=== PATIENT | female | born 1995 ===

== ENCOUNTER 2016-06-07 17:30 | Observation (INO) | payer OTHER ==
--- NOTE | 2016-06-07 18:08 | ED PDOC ---
HPI: General Adult Time Seen by Provider: 06/07/16 17:52 Chief Complaint (Nursing): Abnormal Skin Integrity Chief Complaint (Provider): itching, rash History Per: Patient History/Exam Limitations: no limitations Additional Complaint(s): patient with hx of SLE dx 3 years ago presents for evaluation of rash, itching and swollen joints which have been ongoing to for about 2 months, worse for 1 day prompting visit. she was on plaquenil and another medication for lupus however ran out of the meds 3 months ago and has failed to follow up with soil and plant scientist as she recently moved. feels her heart is racing. (-) fever, chills, abdominal pain, chest pain, vomiting, diarrhea, joint pain. no steroid use in about 6 months Past Medical History Reviewed: Historical Data, Nursing Documentation, Vital Signs Vital Signs: Last Vital Signs Temp 97.8 F 06/08/16 16:00 Pulse 96 H 06/08/16 16:00 Resp 18 06/08/16 16:00 BP 105/54 L 06/08/16 16:00 Pulse Ox 98 06/09/16 12:10 - Medical History Other PMH: SLE - Surgical History Surgical History: No Surg Hx - Family History Family History: States: Unknown Family Hx - Living Arrangements Living Arrangements: With Family - Social History Current smoker - smoking cessation education provided: No Alcohol: None Drugs: Denies - Home Medications Home Medications: Ambulatory Orders Medication Instructions Recorded hydrOXYzine HCl [Atarax] 25 mg PO Q6 PRN #20 tab 06/08/16 predniSONE [Prednisone] 10 mg PO TID #16 tab 06/08/16 - Allergies Allergies/Adverse Reactions: Allergies Allergy/AdvReac Type Severity Reaction Status Date / Time generic meds Allergy RASH Uncoded 06/07/16 17:40 Review of Systems ROS Statement: Except As Marked, All Systems Reviewed And Found Negative Constitutional: Negative for: Fever, Chills Cardiovascular: Positive for: Palpitations (heart racing). Negative for: Chest Pain Respiratory: Negative for: Shortness of Breath Gastrointestinal: Positive for: Nausea. Negative for: Vomiting, Abdominal Pain Genitourinary Female: Negative for: Dysuria, Hematuria, Vaginal Bleeding Musculoskeletal: Negative for: Neck Pain Skin: Negative for: Rash Neurological: Negative for: Headache, Dizziness Physical Exam - Reviewed Nursing Documentation Reviewed: Yes Vital Signs Reviewed: Yes - Physical Exam Appears: Positive for: Uncomfortable, In Acute Distress (moderate dermatological , scratching all over ) Head Exam: Positive for: NORMAL INSPECTION Skin: Positive for: Normal Color, Warm, Rash (butterfly rash to face, erythema to rash to lower extremities anterior, hands posterior) Eye Exam: Positive for: Normal appearance ENT: Positive for: Normal ENT Inspection Neck: Positive for: Normal, Painless ROM Cardiovascular/Chest: Positive for: Tachycardia. Negative for: Murmur Respiratory: Positive for: Normal Breath Sounds. Negative for: Wheezing Gastrointestinal/Abdominal: Positive for: Normal Exam, Soft. Negative for: Tenderness Back: Positive for: Normal Inspection. Negative for: L CVA Tenderness, R CVA Tenderness Extremity: Positive for: Normal ROM, Capillary Refill (normal ), Swelling (to the hands feet, no other joint swelling ). Negative for: Tenderness, Calf Tenderness Lymphatic: Positive for: Normal Exam Neurologic/Psych: Positive for: Alert, Oriented, Gait (normal ). Negative for: Motor/Sensory Deficits - Laboratory Results Result Diagrams: 06/08/16 06:00 06/07/16 18:39 Urine POC: Negative - ECG O2 Sat by Pulse Oximetry: 98 Pulse Ox Interpretation: Normal Medical Decision Making Medical Decision Makin20 y/o female with Lupus with rash consistent with SLE, swollen hand joints. - labs - steroid - benadryl - IVF - re-evaluation labs with elevated wbc, ESR 57 otherwise no acute finding. after medications patient still appears to be in discomfort, no change in the rash, no change in the itching, joints still hurt case discussed with patient given no PMD in the area and no soil and plant scientist she will need to start on steroid to help control the flair. will bring into the hospital for observation. she is in agreement. call placed to Dr. Masters for further evaluation Disposition - Clinical Impression Clinical Impression: SLE exacerbation - Disposition Disposition Time: 20:02 Condition: GOOD
[2016-06-07] MEDS ORDERED: Sodium Chloride 0.9% 1,000 ML IV STA (18:09)
[2016-06-07 18:51] LABS: BASO # 0.2 K/uL (0.0-0.2); BASO % 0.9 % (0.0-2.0); EOS # 0.2 K/uL (0.0-0.7); EOS % 1.2 % (0.0-4.0); HEMATOCRIT 33.7 % (34.0-47.0); LYMPH # 1.7 K/uL (1.0-4.3); LYMPH % 9.6 % (20.0-40.0); MEAN CELL VOLUME 77.4 fl (81.0-99.0); MEAN CORPUSCULAR HEMOGLOBIN 24.1 pg (27.0-31.0); MEAN CORPUSCULAR HGB CONC 31.1 g/dL (33.0-37.0); MEAN PLATELET VOLUME 7.7 fl (7.2-11.7); MONO # 0.4 K/uL (0.0-0.8); MONO % 2.3 % (0.0-10.0); NEUT # 14.9 K/uL (1.8-7.0); PLATELET COUNT 322 K/uL (130-400); RED CELL DISTRIBUTION WIDTH 16.5 % (11.5-14.5); WHITE BLOOD COUNT 17.3 K/uL (4.8-10.8)
[2016-06-07 19:10] LABS: ALB/GLOB RATIO 0.9 (1.0-2.1); ALKALINE PHOSPHATASE 74 U/L (38-126); ALT/SGPT 26 U/L (9-52); AST/SGOT 48 U/L (14-36); BILIRUBIN,TOTAL 0.4 mg/dl (0.2-1.3); BLOOD UREA NITROGEN 12 mg/dl (7-17); CALCIUM 9.4 mg/dL (8.4-10.2); CARBON DIOXIDE 28 mmol/L (22-30); CHLORIDE 100 mmol/L (98-107); GFR AFRICAN-AMERICAN > 60; GLUCOSE,RANDOM 92 mg/dL (65-105); LIPASE 28 U/L (23-300); MAGNESIUM 1.8 MG/DL (1.6-2.3); PHOSPHOROUS 4.6 mg/dl (2.5-4.5); SODIUM 141 mmol/l (132-148); TOTAL PROTEIN 8.5 G/DL (6.3-8.2)
[2016-06-07 19:14] LABS: RBC URINE 1 /hpf (0-3); URINE BACTERIA RARE (<OCC); URINE BILIRUBIN NEGATIVE (NEGATIVE); URINE BLOOD NEGATIVE (NEGATIVE); URINE COLOR YELLOW (YELLOW); URINE GLUCOSE (UA) NEG (Normal); URINE KETONE 20 mg/dL (NEGATIVE); URINE LEUKOCYTE ESTERASE NEG Leu/uL (Negative); URINE PROTEIN NEGATIVE (NEGATIVE); URINE UROBILINOGEN 0.2-1.0 mg/dL (0.2-1.0); WBC URINE 1 /hpf (0-5)
[2016-06-07 19:39] LABS: THYROID STIMULATING HORMONE 0.75 mIU/ML (0.46-4.68)
[2016-06-07 19:49] LABS: EOSINOPHIL 1 % (0-7); NEUTROPHIL 86 % (42-75); TOTAL CELLS COUNTED 100
--- NOTE | 2016-06-07 20:55 | CP.PCM.HP ---
History of Present Illness - History of Present Illness History of Present Illness: Healthcare Marketer: Dr Ferrera; not on staff Chief Complaint: Generalized Pruritus HPI: 20 years old female with hx of lupus noncompliant with medication, comes with 2 days of a pruritic erythemato, macular rash, generalized on both lower extremities, upper extremities, face and back. No headaches, dizziness, SOB, Chest pain, Cough, nausea, vomits, Joint pains, abdominal pain, Diarrhea nor urinary symptoms. She saw her Healthcare Marketer recently and was given Prescription for Christoph (Prednisone), which was not filled. In the ED she received Benadryl which she stated, did not work; and Solu-Medrol 125mg IV which began clearing up the rash but the Pruritus was still intense. PMH: Lupus PSH: No surgical Hx SH: No smoking of Cigarettes; No alcohol, last Marijuana use was 2 days ago. FH: No Hereditary diseases Allergies: Allergies to generic Medications? Present on Admission - Present on Admission Any Indicators Present on Admission: No History of DVT/PE: No History of Uncontrolled Diabetes: No Urinary Catheter: No Decubitus Ulcer Present: No Review of Systems - Constitutional Constitutional: absent: Anorexia, Chills, Fatigue, Fever, Headache, Malaise, Night Sweats - EENT Eyes: absent: Blurred Vision, Diplopia, Photophobia, Requires Corrective Lenses , Sees Flashes Ears: absent: Decreased Hearing, Ear Discharge, Ear Pain, Tinnitus Nose/Mouth/Throat: absent: Epistaxis, Nasal Congestion, Sinus Pain, Sinus Pressure, Sore Throat - Cardiovascular Cardiovascular: absent: Chest Pain, Dyspnea, Edema, Lightheadedness, Palpitations - Respiratory Respiratory: absent: Cough, Dyspnea, Wheezing, Stridor - Gastrointestinal Gastrointestinal: absent: Abdominal Pain, Constipation, Diarrhea, Nausea, Vomiting - Genitourinary Genitourinary: absent: Dysuria, Hematuria, Urinary Frequency, Freq UTI - Musculoskeletal Musculoskeletal: absent: Arthralgias, Back Pain, Joint Swelling, Muscle Weakness , Neck Pain - Integumentary Integumentary: Pruritus, Rash. absent: Skin Ulcer, Sores, Striae, Swelling - Neurological Neurological: absent: Confusion, Focal Weakness, Headaches, Memory Loss - Psychiatric Psychiatric: absent: Anxiety, Confusion, Depression, Panic Attacks - Endocrine Endocrine: absent: Palpitations, Polydipsia, Polyphagia, Polyuria - Hematologic/Lymphatic Hematologic: absent: Easy Bleeding, Easy Bruising Past Patient History - Past Medical History & Family History Past Medical History?: Yes - Past Social History Smoking Status: Never Smoked Chewing Tobacco Use: No Cigar Use: No Alcohol: None Drugs: Cannabis Home Situation {Lives}: With Family - CARDIAC Hx Cardiac Disorders: No - PULMONARY Hx Respiratory Disorders: No - NEUROLOGICAL Hx Neurological Disorder: No - HEENT Hx HEENT Problems: No - RENAL Hx Chronic Kidney Disease: No - ENDOCRINE/METABOLIC Hx Endocrine Disorders: No - HEMATOLOGICAL/ONCOLOGICAL Hx Blood Disorders: No - INTEGUMENTARY Hx Dermatological Problems: No Other/Comment: Lupus - MUSCULOSKELETAL/RHEUMATOLOGICAL Hx Musculoskeletal Disorders: No - GASTROINTESTINAL Hx Gastrointestinal Disorders: No - GENITOURINARY/GYNECOLOGICAL Hx Genitourinary Disorders: No - PSYCHIATRIC Hx Psychophysiologic Disorder: No Hx Substance Use: Yes - SURGICAL HISTORY Hx Surgeries: No - ANESTHESIA Hx Anesthesia: No Meds Allergies/Adverse Reactions: Allergies Allergy/AdvReac Type Severity Reaction Status Date / Time generic meds Allergy RASH Uncoded 06/07/16 17:40 Physical Exam - Constitutional Appears: No Acute Distress - Head Exam Head Exam: ATRAUMATIC, NORMAL INSPECTION, NORMOCEPHALIC - Eye Exam Eye Exam: EOMI, Normal appearance Pupil Exam: NORMAL ACCOMODATION, PERRL - ENT Exam ENT Exam: Mucous Membranes Moist, Normal Exam, Normal External Ear Exam, Normal Oropharynx - Neck Exam Neck exam: Positive for: Full Rom, Normal Inspection. Negative for: Lymphadenopathy, Tenderness - Respiratory Exam Respiratory Exam: Clear to Auscultation Bilateral. absent: Rales, Rhonchi, Wheezes - Cardiovascular Exam Cardiovascular Exam: REGULAR RHYTHM, RRR, +S1, +S2. absent: Gallop, JVD - GI/Abdominal Exam GI & Abdominal Exam: Normal Bowel Sounds, Soft. absent: Distended, Mass, Organomegaly, Tenderness - Rectal Exam Rectal Exam: Deferred - Extremities Exam Extremities exam: Positive for: full ROM, normal inspection. Negative for: calf tenderness, pedal edema - Back Exam Back exam: NORMAL INSPECTION. absent: CVA tenderness (L), CVA tenderness (R) - Neurological Exam Neurological exam: Alert, CN II-XII Intact, Normal Gait, Oriented x3, Reflexes Normal - Psychiatric Exam Psychiatric exam: Normal Affect, Normal Mood - Skin Skin Exam: Dry, Intact, Warm Additional comments: Maculo-erythematous rash diffuse on both lower extremities and the hands, less intense color on the arms Results - Vital Signs Recent Vital Signs: Last Vital Signs Temp 98.3 F 06/07/16 17:41 Pulse 117 H 06/07/16 17:41 Resp 18 06/07/16 17:41 BP 132/85 06/07/16 17:41 Pulse Ox 98 06/07/16 18:07 - Labs Result Diagrams: 06/07/16 18:39 06/07/16 18:39 Labs: Laboratory Results - last 24 hr 06/07/16 06/07/16 18:30 18:39 WBC 17.3 H RBC 4.35 Hgb 10.5 L Hct 33.7 L MCV 77.4 L MCH 24.1 L MCHC 31.1 L RDW 16.5 H Plt Count 322 MPV 7.7 Neut % (Auto) 86.0 H Lymph % (Auto) 9.6 L [place] % (Auto) 2.3 Eos % (Auto) 1.2 Baso % (Auto) 0.9 Neut # 14.9 H Lymph # 1.7 [place] # 0.4 Eos # 0.2 Baso # 0.2 Neutrophils % (Manual) 86 H Band Neutrophils % 1 Lymphocytes % (Manual) 9 L Monocytes % (Manual) 3 Eosinophils % (Manual) 1 Platelet Estimate Normal Hypochromasia (manual) Moderate Poikilocytosis (manual Slight Anisocytosis (manual) Moderate Microcytosis (manual) Moderate Sodium 141 Potassium 4.0 Chloride 100 Carbon Dioxide 28 Anion Gap 17 BUN 12 Creatinine 0.5 L Est GFR ( Amer) > 60 Est GFR (Non-Af Amer) > 60 Random Glucose 92 Calcium 9.4 Phosphorus 4.6 H Magnesium 1.8 Total Bilirubin 0.4 AST 48 H ALT 26 Alkaline Phosphatase 74 Total Protein 8.5 H Albumin 4.0 Globulin 4.6 H Albumin/Globulin Ratio 0.9 L Lipase 28 TSH 3rd Generation 0.75 Urine Color Yellow Urine Clarity Slighty-cloudy Urine pH 6.0 Ur Specific [place] 1.020 Urine Protein Negative Urine Glucose (UA) Neg Urine Ketones 20 Urine Blood Negative Urine Nitrate Negative Urine Bilirubin Negative Urine Urobilinogen 0.2-1.0 Ur Leukocyte Esterase Neg Urine RBC (Auto) 1 Urine Microscopic WBC 1 Ur Squamous Epith Cells 2 Urine Bacteria Rare Assessment & Plan - Assessment and Plan (Free Text) Assessment: #. SLE flare with Pruritic rash #. Leukocytosis #. Anemia Plan: 20 years old female with hx of lupus noncompliant with medication, comes with 2 days of a pruritic erythemato, macular rash, generalized on both lower extremities, upper extremities, face and back. In the ED she received Benadryl which she stated, did not work; and Solu-Medrol 125mg IV which began clearing up the rash but the Pruritus was still intense. #. SLE flare with Pruritic rash of Acute Cutaneous Lupus - Continue IV Solu-Medrol, then convert to Prednisone tapering - Hydroxyzine for prutitus #. Neutrophylic Leukocytosis reactive - folloe CBC #. Anemia due to the Lupus - follow Hb #. DVT Prophylaxis with lovenox #. code Status: Full - Date & Time Date: 06/07/16 Time: 20:55
[2016-06-07 21:33] LABS: ERYTHROCYTE SEDIMENTATION RATE 57 mm/hr (0-20)
[2016-06-07] MEDS: methylPREDNISolone 60 MG in Sodium Chloride 0.9% 50 ML IVPB SCH (22:58)
[2016-06-08] MEDS: methylPREDNISolone 60 MG in Sodium Chloride 0.9% 50 ML IVPB SCH ×3 (03:53→15:38)
[2016-06-08] MEDS ORDERED: Pneumococcal 23-Valent Vaccine IM ONE (06:30)
[2016-06-08 07:25] LABS: BASO % 0.1 % (0.0-2.0); HEMATOCRIT 36.1 % (34.0-47.0); LYMPH # 0.9 K/uL (1.0-4.3); LYMPH % 5.7 % (20.0-40.0); MEAN CELL VOLUME 77.6 fl (81.0-99.0); MEAN CORPUSCULAR HEMOGLOBIN 24.2 pg (27.0-31.0); MEAN CORPUSCULAR HGB CONC 31.2 g/dL (33.0-37.0); MEAN PLATELET VOLUME 8.2 fl (7.2-11.7); MONO # 0.1 K/uL (0.0-0.8); MONO % 0.5 % (0.0-10.0); NEUT # 15.2 K/uL (1.8-7.0); NEUT % 93.7 % (50.0-75.0); PLATELET COUNT 354 K/uL (130-400); RED CELL DISTRIBUTION WIDTH 16.4 % (11.5-14.5); WHITE BLOOD COUNT 16.2 K/uL (4.8-10.8)
[2016-06-08] MEDS ORDERED: Enoxaparin 40 mg Syringe SC SCH (09:00)
[2016-06-08 11:09] LABS: TOTAL CELLS COUNTED 100
[2016-06-08 11:10] LABS: NEUTROPHIL 94 % (42-75)
[2016-06-08 14:15] VITALS: TEMP 97.8
[2016-06-08 16:54] VITALS: BP 105/54; PULSE 96; RESP 18
--- NOTE | 2016-06-08 19:38 | CP.PCM.DIS ---
Provider - Provider Date of Admission: 06/07/16 20:02 Attending physician: Alireza Masters Time Spent in preparation of Discharge (in minutes): 20 Hospital Course - Lab Results Lab Results: Most Recent Lab Values WBC 16.2 K/uL (4.8-10.8) H 06/08/16 06:00 RBC 4.66 Mil/uL (3.80-5.20) 06/08/16 06:00 Hgb 11.3 g/dL (12.0-16.0) L 06/08/16 06:00 Hct 36.1 % (34.0-47.0) 06/08/16 06:00 MCV 77.6 fl (81.0-99.0) L 06/08/16 06:00 MCH 24.2 pg (27.0-31.0) L 06/08/16 06:00 MCHC 31.2 g/dL (33.0-37.0) L 06/08/16 06:00 RDW 16.4 % (11.5-14.5) H 06/08/16 06:00 Plt Count 354 K/uL (130-400) 06/08/16 06:00 MPV 8.2 fl (7.2-11.7) 06/08/16 06:00 Neut % (Auto) 93.7 % (50.0-75.0) H 06/08/16 06:00 Lymph % (Auto) 5.7 % (20.0-40.0) L 06/08/16 06:00 [place] % (Auto) 0.5 % (0.0-10.0) 06/08/16 06:00 Eos % (Auto) 0.0 % (0.0-4.0) 06/08/16 06:00 Baso % (Auto) 0.1 % (0.0-2.0) 06/08/16 06:00 Neut # 15.2 K/uL (1.8-7.0) H 06/08/16 06:00 Lymph # 0.9 K/uL (1.0-4.3) L 06/08/16 06:00 [place] # 0.1 K/uL (0.0-0.8) 06/08/16 06:00 Eos # 0.0 K/uL (0.0-0.7) 06/08/16 06:00 Baso # 0.0 K/uL (0.0-0.2) 06/08/16 06:00 Neutrophils % (Manual) 94 % (42-75) H 06/08/16 06:00 Band Neutrophils % 1 % (0-2) 06/07/16 18:39 Lymphocytes % (Manual) 6 % (20-50) L 06/08/16 06:00 Monocytes % (Manual) 0 % (0-10) 06/08/16 06:00 Eosinophils % (Manual) 1 % (0-7) 06/07/16 18:39 Platelet Estimate Normal (NORMAL) 06/08/16 06:00 Hypochromasia (manual) Moderate 06/07/16 18:39 Poikilocytosis (manual Slight 06/07/16 18:39 Anisocytosis (manual) Slight 06/08/16 06:00 Microcytosis (manual) Moderate 06/07/16 18:39 ESR 57 mm/hr (0-20) H 06/07/16 18:39 Sodium 141 mmol/l (132-148) 06/07/16 18:39 Potassium 4.0 MMOL/L (3.6-5.0) 06/07/16 18:39 Chloride 100 mmol/L (98-107) 06/07/16 18:39 Carbon Dioxide 28 mmol/L (22-30) 06/07/16 18:39 Anion Gap 17 (10-20) 06/07/16 18:39 BUN 12 mg/dl (7-17) 06/07/16 18:39 Creatinine 0.5 mg/dL (0.7-1.2) L 06/07/16 18:39 Est GFR ( Amer) > 60 06/07/16 18:39 Est GFR (Non-Af Amer) > 60 06/07/16 18:39 Random Glucose 92 mg/dL (65-105) 06/07/16 18:39 Calcium 9.4 mg/dL (8.4-10.2) 06/07/16 18:39 Phosphorus 4.6 mg/dl (2.5-4.5) H 06/07/16 18:39 Magnesium 1.8 MG/DL (1.6-2.3) 06/07/16 18:39 Total Bilirubin 0.4 mg/dl (0.2-1.3) 06/07/16 18:39 AST 48 U/L (14-36) H 06/07/16 18:39 ALT 26 U/L (9-52) 06/07/16 18:39 Alkaline Phosphatase 74 U/L (38-126) 06/07/16 18:39 Total Protein 8.5 G/DL (6.3-8.2) H 06/07/16 18:39 Albumin 4.0 g/dL (3.5-5.0) 06/07/16 18:39 Globulin 4.6 gm/dL (2.2-3.9) H 06/07/16 18:39 Albumin/Globulin Ratio 0.9 (1.0-2.1) L 06/07/16 18:39 Lipase 28 U/L (23-300) 06/07/16 18:39 TSH 3rd Generation 0.75 mIU/ML (0.46-4.68) 06/07/16 18:39 Urine Color Yellow (YELLOW) 06/07/16 18:30 Urine Clarity Slighty-cloudy (Clear) 06/07/16 18:30 Urine pH 6.0 (5.0-8.0) 06/07/16 18:30 Ur Specific [place] 1.020 (1.003-1.030) 06/07/16 18:30 Urine Protein Negative mg/dL (NEGATIVE) 06/07/16 18:30 Urine Glucose (UA) Neg mg/dL (Normal) 06/07/16 18:30 Urine Ketones 20 mg/dL (NEGATIVE) 06/07/16 18:30 Urine Blood Negative (NEGATIVE) 06/07/16 18:30 Urine Nitrate Negative (NEGATIVE) 06/07/16 18:30 Urine Bilirubin Negative (NEGATIVE) 06/07/16 18:30 Urine Urobilinogen 0.2-1.0 mg/dL (0.2-1.0) 06/07/16 18:30 Ur Leukocyte Esterase Neg [place]/uL (Negative) 06/07/16 18:30 Urine RBC (Auto) 1 /hpf (0-3) 06/07/16 18:30 Urine Microscopic WBC 1 /hpf (0-5) 06/07/16 18:30 Ur Squamous Epith Cells 2 /hpf (0-5) 06/07/16 18:30 Urine Bacteria Rare (<OCC) 06/07/16 18:30 - Hospital Course Hospital Course: 20 years old female with hx of lupus noncompliant with medication, comes with 2 days of a pruritic erythematous, macular rash, generalized on both lower extremities, upper extremities, face and back. No headaches, dizziness, SOB, Chest pain, Cough, nausea, vomits, Joint pains, abdominal pain, Diarrhea nor urinary symptoms. She saw her Instructional Technology Specialist recently and was given Prescription for Christoph (Prednisone), which was not filled. In the ED she received Benadryl which she stated, did not work; and Solu-Medrol 125mg IV which began clearing up the rash but the Pruritus was still intense. She was placed under observation for SLE flare with acute cutaneous Pruritic rash . She was continued on methylprednisolne 60 mg IV Q8 and hydroxyzine . Clinically she improved, her rash resolved and feeling mucgh better. She remained hemodynamically stable, afebrile with no fever, no SOB , no CP. Will discharge patient home on Prednisone Po tapering dose. Advice patient to follow up with her printmaker . DX : 1 SLE flare with Pruritic rash of Acute Cutaneous Lupus-- improved 2.Leukocytosis--- reactive - folloe CBC 3. Anemia of chronic disease due to the Lupus Discharge Exam - Head Exam Head Exam: ATRAUMATIC, NORMAL INSPECTION, NORMOCEPHALIC - Eye Exam Eye Exam: EOMI, PERRL Pupil Exam: NORMAL ACCOMODATION - ENT Exam ENT Exam: Mucous Membranes Moist, Normal Exam - Neck Exam Neck exam: Full Rom, Normal Inspection - Respiratory Exam Respiratory Exam: Clear to PA & Lateral, NORMAL BREATHING PATTERN. absent: Rales, Rhonchi, Wheezes - Cardiovascular Exam Cardiovascular Exam: REGULAR RHYTHM, RRR, +S1, +S2. absent: JVD - GI/Abdominal Exam GI & Abdominal Exam: Normal Bowel Sounds, Soft. absent: Distended, Guarding, Rebound, Tenderness - Rectal Exam Rectal Exam: Deferred - Extremities Exam Extremities exam: normal capillary refill, normal inspection, pedal pulses present - Back Exam Back exam: NORMAL INSPECTION - Neurological Exam Neurological exam: Alert, CN II-XII Intact, Oriented x3, Reflexes Normal - Psychiatric Exam Psychiatric exam: Normal Affect, Normal Mood - Skin Skin Exam: Dry, Intact, Rash (buterfly rash to face ), Warm Discharge Plan - Discharge Medications Prescriptions: hydrOXYzine HCl [Atarax] 25 mg PO Q6 PRN #20 tab PRN Reason: Itching / Pruritus predniSONE [Prednisone] 10 mg PO TID #16 tab - Follow Up Plan Condition: GOOD Disposition: HOME/ ROUTINE Patient education suggested?: Yes Instructions: Lupus Erythematosus (DC) Additional Instructions: Follow up with her Instructional Technology Specialist
[2016-06-09 11:27] VITALS: O2SAT 98
== END 2016-06-08 17:05 | disposition home or self-care (01) ==
LOC: H.ER 17:30 → H.ERHOLD 20:02 → H.TEL 22:18
PROVIDERS: ADMIT Internal Medicine; ATTEND Internal Medicine
DX: M32.9 Systemic lupus erythematosus, unspecified (principal); Z91.14 Patient's other noncompliance with medication regimen; D72.829 Elevated white blood cell count, unspecified; D63.8 Anemia in other chronic diseases classified elsewhere; Z23 Encounter for immunization

== ENCOUNTER 2016-08-09 22:19 | Emergency (ER) | payer OTHER ==
[2016-08-09 22:31] VITALS: BP 116/61; PULSE 82; RESP 16; TEMP 98; O2SAT 100
[2016-08-09] MEDS ORDERED: Sodium Chloride 0.9% 1,000 ML IV STA (23:05)
--- NOTE | 2016-08-09 23:07 | ED PDOC ---
HPI: Skin/Bite Injury Time Seen by Provider: 08/09/16 22:40 Chief Complaint (Nursing): Abnormal Skin Integrity Chief Complaint (Provider): Itchy rash- Lupus flare History Per: Patient History/Exam Limitations: no limitations Onset/Duration Of Symptoms: Days (2) Current Symptoms Are (Timing): Still Present Quality Of Symptoms: Itching Severity: Moderate Additional Complaint(s): 20 yo female with history of lupus presents with itchy rash x 2 days. PT states she was unable to take her medications for lupus for a week and began yesterday fter the rash appeared but states it did not help. Pt denies pain. PT states she gets this rash on her face nad body when he lupus flares. Pt states the medications are not helping. Past Medical History Reviewed: Historical Data, Nursing Documentation, Vital Signs Vital Signs: Last Vital Signs Temp 98.0 F 08/09/16 22:27 Pulse 82 08/09/16 22:27 Resp 16 08/09/16 22:27 BP 116/61 08/09/16 22:27 Pulse Ox 100 08/09/16 22:27 - Medical History PMH: Denies: Chronic Kidney Disease Other PMH: Lupus - Surgical History Surgical History: No Surg Hx - Family History Family History: States: Unknown Family Hx - Living Arrangements Living Arrangements: With Family - Social History Current smoker - smoking cessation education provided: No Alcohol: None Drugs: Denies - Home Medications Home Medications: Ambulatory Orders Medication Instructions Recorded hydrOXYzine HCl [Atarax] 25 mg PO Q6 PRN #20 tab 06/08/16 predniSONE [Prednisone] 10 mg PO TID #16 tab 06/08/16 - Allergies Allergies/Adverse Reactions: Allergies Allergy/AdvReac Type Severity Reaction Status Date / Time generic meds Allergy RASH Uncoded 06/07/16 17:40 Review of Systems ROS Statement: Except As Marked, All Systems Reviewed And Found Negative Skin: Positive for: Rash Physical Exam - Reviewed Nursing Documentation Reviewed: Yes Vital Signs Reviewed: Yes - Physical Exam Appears: Positive for: Well, Non-toxic, No Acute Distress Head Exam: Positive for: ATRAUMATIC, NORMAL INSPECTION, NORMOCEPHALIC Skin: Positive for: Warm, Rash (Rash also on the extremities in varies pattern. ). Negative for: Normal Color ((+) butterfly/malar rash ) Eye Exam: Positive for: Normal appearance ENT: Positive for: Normal ENT Inspection Neck: Positive for: Normal, Painless ROM Cardiovascular/Chest: Positive for: Regular Rate, Rhythm Respiratory: Positive for: Normal Breath Sounds. Negative for: Decreased Breath Sounds, Accessory Muscle Use Gastrointestinal/Abdominal: Positive for: Normal Exam, Bowel Sounds, Soft Back: Positive for: Normal Inspection Extremity: Positive for: Normal ROM Neurologic/Psych: Positive for: Alert, Oriented - ECG O2 Sat by Pulse Oximetry: 100 Medical Decision Making Medical Decision Making: Labs and steroid ordered. Endorsed to Isa Dan PA-C at 0000 Disposition - Clinical Impression Clinical Impression: SLE exacerbation - Patient ED Disposition Is Patient to be Admitted: Transfer of Care - Disposition Disposition: Transfer of Care Disposition Time: 00:00 Condition: GOOD
[2016-08-09 23:40] LABS: BASO # 0.1 K/uL (0.0-0.2); BASO % 0.3 % (0.0-2.0); EOS # 0.1 K/uL (0.0-0.7); EOS % 0.4 % (0.0-4.0); HEMATOCRIT 37.6 % (34.0-47.0); LYMPH # 1.3 K/uL (1.0-4.3); LYMPH % 5.5 % (20.0-40.0); MEAN CELL VOLUME 80.6 fl (81.0-99.0); MEAN CORPUSCULAR HEMOGLOBIN 25.9 pg (27.0-31.0); MEAN CORPUSCULAR HGB CONC 32.1 g/dL (33.0-37.0); MEAN PLATELET VOLUME 7.9 fl (7.2-11.7); MONO # 0.4 K/uL (0.0-0.8); MONO % 1.6 % (0.0-10.0); NEUT # 21.7 K/uL (1.8-7.0); NEUT % 92.2 % (50.0-75.0); PLATELET COUNT 344 K/uL (130-400); RED CELL DISTRIBUTION WIDTH 17.8 % (11.5-14.5); WHITE BLOOD COUNT 23.5 K/uL (4.8-10.8)
--- NOTE | 2016-08-09 23:54 | ED PDOC ---
- Laboratory Results Result Diagrams: 08/09/16 23:37 08/09/16 23:37 - ECG O2 Sat by Pulse Oximetry: 100 Medical Decision Making Medical Decision Making: Case endorsed to service writer from NANCY Akers at midnight pending re-eval HPI reviewed: 20 yo female with history of lupus presents with itchy rash x 2 days. PT states she was unable to take her medications for lupus for a week and began yesterday fter the rash appeared but states it did not help. Pt denies pain. PT states she gets this rash on her face nad body when he lupus flares. Pt states the medications are not helping. After Solumedrol and Benadryl, pt reports rash is noticeably improved. Pt given RX for Medrol dise pack and advised to continue her lups medications at home Disposition - Clinical Impression Clinical Impression: SLE exacerbation - POA Present On Arrival: None - Disposition Disposition: Routine/Home Disposition Time: 01:02 Condition: GOOD Prescriptions: Methylprednisolone [Medrol Dose Pack (21 tabs)] 4 mg PO DAILY #21 mg Instructions: Autoimmune Disease (ED)
[2016-08-09 23:56] LABS: ALB/GLOB RATIO 1.1 (1.0-2.1); ALKALINE PHOSPHATASE 75 U/L (38-126); ALT/SGPT 24 U/L (9-52); AST/SGOT 21 U/L (14-36); BILIRUBIN,TOTAL 0.2 mg/dl (0.2-1.3); BLOOD UREA NITROGEN 10 mg/dl (7-17); CALCIUM 9.8 mg/dL (8.4-10.2); CARBON DIOXIDE 24 mmol/L (22-30); CHLORIDE 103 mmol/L (98-107); GFR AFRICAN-AMERICAN > 60; GLUCOSE,RANDOM 139 mg/dL (65-105); POTASSIUM 4.1 MMOL/L (3.6-5.0); SODIUM 137 mmol/l (132-148); TOTAL PROTEIN 8.6 G/DL (6.3-8.2)
[2016-08-10 00:18] LABS: ERYTHROCYTE SEDIMENTATION RATE 46 mm/hr (0-20)
[2016-08-10 01:35] LABS: NEUTROPHIL 94 % (42-75); REACTIVE LYMPHOCYTES 1 % (0-0); TOTAL CELLS COUNTED 100
[2016-08-10 01:36] LABS: LARGE PLATELETS PRESENT
== END 2016-08-10 01:05 | disposition home or self-care (01) ==
LOC: H.ER 22:19
DX: M32.9 Systemic lupus erythematosus, unspecified (principal)

== ENCOUNTER 2016-09-15 17:35 | Emergency (ER) | payer OTHER ==
[2016-09-15] MEDS ORDERED: Sodium Chloride 0.9% 50 ML IV ONE (23:14)
[2016-09-15] MEDS ORDERED: Iohexol 300 100 ML IJ ONE (23:14)
[2016-09-16 00:31] VITALS: BMI 24.2
--- NOTE | 2016-09-17 15:21 | US ---
Pelvic ultrasound dated 09/15/2016 1952 hours. History: Pelvic pain. Transabdominal sonographic evaluation of the pelvis performed. The study was read in conjunction with subsequent CT scan abdomen and pelvis 09/15/2016 at 2320 hours Findings: The uterus is anteverted measuring approximately 0.4 x 3.9 x 3.2 cm. No myometrial masses. Endometrial stripe measures 2.2 mm. No gross free fluid seen in the cul de sac. Right ovary measures 3.9 x 2.7 x 3.1 cm and exhibits arterial flow. There is a small complex appearing right adnexal cyst that measures 1.6 x 1.6 x 1.4 cm. Left ovary measures 34.4 x 3.1 x 2.6 cm and exhibits arterial flow. The left ovary contains an irregular somewhat elongated cystic structure measures 3.9 x 3.4 x 1.4 cm that could represent a hydrosalpinx or pyosalpinx. Clinical correlation recommended. Impression: Questionable left adnexal hydrosalpinx; rule out pyosalpinx. No evidence of ovarian torsion.
[2016-09-18 00:47] LABS: URINE COLOR YELLOW (YELLOW)
[2016-09-18 00:48] LABS: URINE BILIRUBIN NEGATIVE (NEGATIVE); URINE BLOOD NEGATIVE (NEGATIVE); URINE CLARITY SLIGHT-CLOUDY (Clear); URINE GLUCOSE (UA) NEGATIVE (Normal); URINE LEUKOCYTE ESTERASE LARGE Leu/uL (Negative); URINE NITRATE NEGATIVE (NEGATIVE); URINE PROTEIN 30 mg/dL (NEGATIVE); URINE UROBILINOGEN 0.2 mg/dL (0.2-1.0)
[2016-09-18 00:49] LABS: SQUAMOUS EPITHIAL 5 /hpf (0-5); URINE BACTERIA RARE (<OCC); URINE OTHER CASTS 1 /hpf
[2016-09-18 00:50] LABS: HEMOGLOBIN 12.2 g/dL (12.0-16.0); MEAN CELL VOLUME 83.3 fl (81.0-99.0); MEAN CORPUSCULAR HEMOGLOBIN 26.5 pg (27.0-31.0); MEAN CORPUSCULAR HGB CONC 31.8 g/dL (33.0-37.0); RBC 4.61 Mil/uL (3.80-5.20); RED CELL DISTRIBUTION WIDTH 17.3 % (11.5-14.5)
--- NOTE | 2016-09-19 09:17 | CT ---
PROCEDURE: CT abdomen pelvis dated 09/15/2016.. HISTORY: Left lower quadrant abdominal pain. COMPARISON: No prior TECHNIQUE: Contiguous axial images of the abdomen and pelvis pelvis performed following a of intravenous injection of approximately 95 cc Omnipaque 300 contrast the material. Coronal and Sagittal reformats generated. Radiation dose: Total exam DLP = 450.14 mGy-cm. This CT exam was performed using one or more of the following dose reduction techniques: Automated exposure control, adjustment of the mA and/or kV according to patient size, and/or use of iterative reconstruction technique. FINDINGS: LOWER THORAX: Unremarkable. LIVER: Liver is borderline/ mildly enlarged measuring approximately 18 cm in CC dimension. Mild diffuse fatty hepatic infiltration. Portal and splenic veins are opacified. GALLBLADDER AND BILE DUCTS: The gallbladder is incompletely distended which may come account for slight thick-walled appearance. This is likely due to nonfasting state. Rule out mild chronic inflammation. PANCREAS: Visualized portions of the pancreas appear grossly unremarkable. SPLEEN: Spleen appears mildly enlarged measuring approximately 13.3 cm in greatest CC dimension. No obvious splenic mass or collection. ADRENALS: There are no adrenal lesions seen. KIDNEYS AND URETERS: Kidneys exhibit symmetric nephrograms. No evidence of nephrolithiasis or hydronephrosis. The the the the BLADDER: The urinary bladder is incompletely distended which may account for slight thick-walled appearance. Rule out cystitis. REPRODUCTIVE: There is a more this on relatively large tubular structure in the left and mid aspect of the pelvis extending into the cul-de-sac with peripheral enhancement. This most likely represents hydrosalpinx. Rule out superinfection - pyosalpinx. There may also be an adjacent right corpus luteum cyst. There is adjacent free fluid as well. APPENDIX: Appendix is unremarkable. BOWEL: Evaluation of the bowel is limited due to the lack of oral contrast material. Stomach is distended with food debris air and some liquid. Visualized loops of small bowel exhibit normal contour and caliber. No evidence of acute mechanical small bowel obstruction. Moderate amount of stool is seen within the cecum and at ascending colon suggesting mild fecal retention. No definitive evidence of mural wall thickening. PERITONEUM: Free fluid is present in the pelvis as above LYMPH NODES: Unremarkable. No enlarged lymph nodes. VASCULATURE: No evidence of abdominal aortic aneurysm. BONES: No fracture or destructive lesion. OTHER FINDINGS: None. IMPRESSION: Large somewhat asymmetric tubular structure with peripheral enhancement. Findings could represent a large hydrosalpinx or pyosalpinx with adjacent free fluid. Probable right-sided corpus luteum cyst. Consider followup pelvic ultrasound. Mild hepatosplenomegaly. Mild fatty hepatic infiltration. See above discussion for additional findings and details.
== END 2016-09-16 00:31 | disposition home or self-care (01) ==
LOC: H.ER 17:35
DX: N39.0 Urinary tract infection, site not specified (principal); N83.201 Unspecified ovarian cyst, right side

== ENCOUNTER 2016-11-20 15:53 | Emergency (ER) | payer OTHER ==
[2016-11-20 15:54] VITALS: BMI 24.2
[2016-11-20 16:13] VITALS: O2SAT 100
[2016-11-20] MEDS ORDERED: methylPREDNISolone 125 MG in Sodium Chloride 0.9% 50 ML IV STA (17:04)
[2016-11-20] MEDS ORDERED: Sodium Chloride 0.9% 1,000 ML IV STA (17:06)
--- NOTE | 2016-11-20 17:11 | ED PDOC ---
HPI: General Adult Time Seen by Provider: 11/20/16 16:30 Chief Complaint (Nursing): Medical Clearance Chief Complaint (Provider): Lupus flare up History Per: Patient History/Exam Limitations: no limitations Onset/Duration Of Symptoms: Days (x 2-3 weeks, worsened yesterday) Current Symptoms Are (Timing): Still Present Additional Complaint(s): Rema is a 21 y/o female with a past medical history of Lupus, who presents to the ED requesting medication. States she usually takes Christoph (prednisone) and Plaquenil, which she has been off of for 2-3 weeks. Couldnt afford medication, but states she will have it on Saturday. Currently patient is complaining of increased pain, and subjective fever yesterday. Denies cough and urinary symptoms. Additionally, she complains she broke her left pinky finger last month and tried to splint it, but it hasnt healed properly. Patient has left pinky pain, but only to the lateral aspect. 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 Past Medical History Reviewed: Historical Data, Nursing Documentation, Vital Signs Vital Signs: Last Vital Signs Temp 98.0 F 11/20/16 16:10 Pulse 86 11/20/16 16:10 Resp 18 11/20/16 16:10 BP 128/67 11/20/16 16:10 Pulse Ox 100 11/20/16 20:34 - Medical History PMH: Denies: Chronic Kidney Disease Other PMH: Lupus - Family History Family History: States: Unknown Family Hx - Home Medications Home Medications: Ambulatory Orders Medication Instructions Recorded hydrOXYzine HCl [Atarax] 25 mg PO Q6 PRN #20 tab 06/08/16 predniSONE [Prednisone] 10 mg PO TID #16 tab 06/08/16 Methylprednisolone [Medrol Dose 4 mg PO DAILY #21 mg 08/10/16 Pack (21 tabs)] Nitrofurantoin Macrocrystals 1 cap PO BID #14 cap 09/16/16 [Macrobid] traMADol [Ultram] 50 mg PO TID PRN #15 tab 09/16/16 Famotidine [Pepcid] 20 mg PO BID #10 tab 11/20/16 Hydroxyzine HCl 25 mg PO Q6 PRN #20 tablet 11/20/16 Methylprednisolone [Medrol Dose 4 mg PO DAILY #21 mg 09/05/17 Pack (21 tabs)] - Allergies Allergies/Adverse Reactions: Allergies Allergy/AdvReac Type Severity Reaction Status Date / Time generic meds Allergy RASH Uncoded 06/07/16 17:40 Review of Systems ROS Statement: Except As Marked, All Systems Reviewed And Found Negative Constitutional: Positive for: Fever, Other (Generalized pain) Physical Exam - Reviewed Nursing Documentation Reviewed: Yes Vital Signs Reviewed: Yes - Physical Exam Appears: Positive for: Well, Non-toxic, No Acute Distress Head Exam: Positive for: ATRAUMATIC, NORMAL INSPECTION, NORMOCEPHALIC Skin: Positive for: Warm, Dry, Rash (Malar rash on face. Mild erythema on anterior legs, patient scratching) Eye Exam: Positive for: EOMI, Normal appearance, PERRL Neck: Positive for: Normal, Painless ROM, Supple Cardiovascular/Chest: Positive for: Regular Rate, Rhythm. Negative for: Murmur Respiratory: Positive for: Normal Breath Sounds. Negative for: Accessory Muscle Use, Respiratory Distress Gastrointestinal/Abdominal: Positive for: Normal Exam, Soft. Negative for: Tenderness Back: Positive for: Normal Inspection Extremity: Positive for: Normal ROM, Deformity (Left 5th digit deformity noted at DIP. Patient able to flex at DIP and PIP.) Neurologic/Psych: Positive for: Alert, Oriented - Laboratory Results Result Diagrams: 11/20/16 17:31 11/20/16 17:31 - ECG O2 Sat by Pulse Oximetry: 100 (RA) Pulse Ox Interpretation: Normal - Progress ED Course And Treament: Re-evaluated and noted with improvement of rash. pepcid 20 mg iv x 1 dose to help with persistent itching xry of hand: fx of middle phalanx healing Patient states injury is 4 weeks old and does not want finger splint Will give her hand referral info for f/u Medical Decision Making Medical Decision Making: Time: 17:04 Plan: --Ordered labs --Started patient on IV fluids and Solu-Medrol --Pending X-Ray Left Hand 5th Digit Time: 19:13 --Given Benadryl, 50 mg IV Time: 20:19 --Given Pepcid, 20 mg IV Scribe Attestation: Documented by Chanelle Aguilera, acting as a scribe for Godwin Monk PA-C Provider Scribe Attestation: All medical record entries made by the Scribe were at my direction and personally dictated by me. I have reviewed the chart and agree that the record accurately reflects my personal performance of the history, physical exam, medical decision making, and the department course for this patient. I have also personally directed, reviewed, and agree with the discharge instructions and disposition. Disposition - Clinical Impression Clinical Impression: Fracture of middle phalanx of finger - Patient ED Disposition Is Patient to be Admitted: No - Disposition Referrals: Davina Huffman MD [Staff Provider] - Disposition: Routine/Home Disposition Time: 20:40 Condition: FAIR Prescriptions: Famotidine [Pepcid] 20 mg PO BID #10 tab Hydroxyzine HCl 25 mg PO Q6 PRN #20 tablet PRN Reason: Itching / Pruritus Methylprednisolone [Medrol Dose Pack (21 tabs)] 4 mg PO DAILY #21 mg Instructions: Finger Fracture (ED), Autoimmune Disease (ED) Forms: [employer] (Yoruba), [facility] ED School/Work Excuse
[2016-11-20 17:43] LABS: BASO # 0.1 K/uL (0.0-0.2); BASO % 0.4 % (0.0-2.0); EOS # 0.1 K/uL (0.0-0.7); EOS % 0.9 % (0.0-4.0); HEMATOCRIT 38.1 % (34.0-47.0); LYMPH # 1.6 K/uL (1.0-4.3); LYMPH % 10.3 % (20.0-40.0); MEAN CELL VOLUME 84.6 fl (81.0-99.0); MEAN CORPUSCULAR HEMOGLOBIN 26.9 pg (27.0-31.0); MEAN CORPUSCULAR HGB CONC 31.8 g/dL (33.0-37.0); MEAN PLATELET VOLUME 8.5 fl (7.2-11.7); MONO # 0.6 K/uL (0.0-0.8); MONO % 3.6 % (0.0-10.0); NEUT # 13.2 K/uL (1.8-7.0); NEUT % 84.8 % (50.0-75.0); RED CELL DISTRIBUTION WIDTH 16.2 % (11.5-14.5); WHITE BLOOD COUNT 15.5 K/uL (4.8-10.8)
[2016-11-20 17:50] LABS: ALB/GLOB RATIO 1.2 (1.0-2.1); ALKALINE PHOSPHATASE 62 U/L (38-126); ALT/SGPT 25 U/L (9-52); AST/SGOT 22 U/L (14-36); BILIRUBIN,TOTAL 0.4 mg/dl (0.2-1.3); BLOOD UREA NITROGEN 10 mg/dl (7-17); CALCIUM 9.6 mg/dL (8.4-10.2); CARBON DIOXIDE 27 mmol/L (22-30); CHLORIDE 102 mmol/L (98-107); GFR AFRICAN-AMERICAN > 60; GLUCOSE,RANDOM 100 mg/dL (65-105); POTASSIUM 3.9 MMOL/L (3.6-5.0); SODIUM 141 mmol/l (132-148); TOTAL PROTEIN 7.9 G/DL (6.3-8.2)
[2016-11-20 17:58] LABS: RBC URINE 10 /hpf (0-3); URINE BACTERIA RARE (<OCC); URINE BILIRUBIN NEGATIVE (NEGATIVE); URINE BLOOD LARGE (NEGATIVE); URINE COLOR YELLOW (YELLOW); URINE GLUCOSE (UA) NEG (Normal); URINE KETONE TRACE mg/dL (NEGATIVE); URINE LEUKOCYTE ESTERASE NEG Leu/uL (Negative); URINE PROTEIN 30 mg/dL (NEGATIVE); URINE UROBILINOGEN 0.2-1.0 mg/dL (0.2-1.0); WBC URINE 3 /hpf (0-5)
[2016-11-20] MEDS ORDERED: DiphenhydrAMINE 50 mg/ml Inj IVP STA (19:13)
[2016-11-20 21:55] VITALS: BP 123/71; PULSE 74; RESP 16; TEMP 98.7
--- NOTE | 2016-11-21 10:37 | RAD ---
PROCEDURE: Left small finger radiographs. HISTORY: INJURY OLD COMPARISON: None. TECHNIQUE: AP radiograph of the left hand, as well as spot oblique and lateral images of left small finger were obtained. FINDINGS: LEFT SMALL FINGER: There is a acute comminuted fracture at the mid phalanx of the 5th finger extending to the articular surface of the distal interphalangeal joint. Remainder of the left hand (as seen on the AP view) is grossly unremarkable. JOINTS: Normal. SOFT TISSUES: Normal. OTHER FINDINGS: None. IMPRESSION: Suspicious for acute fracture at the mid phalanx of the 5th finger.
== END 2016-11-20 21:54 | disposition home or self-care (01) ==
LOC: H.ER 15:53
DX: M32.9 Systemic lupus erythematosus, unspecified (principal); Z47.89 Encounter for other orthopedic aftercare
CPT/HCPCS: 73140; 80053; 81003; 81025; 85025; 85651; 96361; 96374; 96375; 99283; J1200; J2930; J7040

== ENCOUNTER 2017-06-16 19:58 | Emergency (ER) | payer SELFPAY ==
[2017-06-16 19:58] VITALS: BMI 24.2
[2017-06-16 20:36] VITALS: BP 112/64; PULSE 94; RESP 18; TEMP 98.8; O2SAT 100
[2017-06-16 22:18] LABS: BASO # 0.1 K/uL (0.0-0.2); BASO % 0.4 % (0.0-2.0); EOS # 0.5 K/uL (0.0-0.7); EOS % 3.3 % (0.0-4.0); HEMOGLOBIN 9.7 g/dL (12.0-16.0); LYMPH # 2.3 K/uL (1.0-4.3); LYMPH % 16.5 % (20.0-40.0); MEAN CELL VOLUME 77.3 fl (81.0-99.0); MEAN CORPUSCULAR HEMOGLOBIN 23.9 pg (27.0-31.0); MEAN CORPUSCULAR HGB CONC 30.9 g/dL (33.0-37.0); MONO # 0.5 K/uL (0.0-0.8); MONO % 3.7 % (0.0-10.0); NEUT # 10.5 K/uL (1.8-7.0); NEUT % 76.1 % (50.0-75.0); RBC 4.08 Mil/uL (3.80-5.20); RED CELL DISTRIBUTION WIDTH 16.2 % (11.5-14.5); WHITE BLOOD COUNT 13.8 K/uL (4.8-10.8)
[2017-06-16 22:25] LABS: ALB/GLOB RATIO 0.8 (1.0-2.1); ALBUMIN 3.4 g/dL (3.5-5.0); ALT/SGPT 26 U/L (9-52); AST/SGOT 13 U/L (14-36); BLOOD UREA NITROGEN 9 mg/dl (7-17); CALCIUM 8.9 mg/dL (8.4-10.2); GFR AFRICAN-AMERICAN > 60; GFR NON-AFRICAN AMERICAN > 60
[2017-06-16 22:33] LABS: URINE BILIRUBIN NEGATIVE (NEGATIVE); URINE BLOOD NEGATIVE (NEGATIVE); URINE CLARITY CLEAR (Clear); URINE COLOR STRAW (YELLOW); URINE GLUCOSE (UA) >=500 mg/dL (Normal); URINE LEUKOCYTE ESTERASE NEG Leu/uL (Negative); URINE PROTEIN NEGATIVE (NEGATIVE); URINE UROBILINOGEN 0.2-1.0 mg/dL (0.2-1.0)
--- NOTE | 2017-06-16 23:25 | ED PDOC ---
Arrival/HPI - General Chief Complaint: Weakness/Neurological Deficit Time Seen by Provider: 06/16/17 21:09 Historian: Patient - History of Present Illness Narrative History of Present Illness (Text): 06/16/17 23:23 21 yo F w/ PMh of lupus, currently on no medications, reports 1 week h/o feeling fatigue. She is asking for blood work to be done to check "how she is." Reports no dizziness or vertigo. Otherwise: (-) lightheadedness, (-) trauma, (- ) headache, (-) recent illness, (-) chest pain, (-) dyspnea, (-) fever, (-) vomiting, (-) diarrhea, (-) syncope, (-) GI bleeding. 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 Past Medical History - Cardiac Hx Cardiac Disorders: No - Pulmonary Hx Respiratory Disorders: No - Neurological Hx Neurological Disorder: No - HEENT Hx HEENT Disorder: No - Renal Hx Renal Disorder: No - Endocrine/Metabolic Hx Systemic Lupus Erythematosus: Yes - Hematological/Oncological Hx Blood Disorders: No - Integumentary Hx Dermatological Disorder: No - Musculoskeletal/Rheumatological Hx Falls: No - Gastrointestinal Hx Constipation: Yes - Genitourinary/Gynecological Hx Genitourinary Disorders: No - Psychiatric Hx Psychophysiologic Disorder: No Hx Substance Use: Yes (use marijuana evry other day) - Anesthesia Hx Anesthesia: No Family/Social History Family/Social History: Unknown Family HX Smoking Status: Current Some Days Smoker Hx Alcohol Use: No Hx Substance Use: Yes (use marijuana evry other day) Substance used: marijuana - 2 days ago Allergies/Home Meds Allergies/Adverse Reactions: Allergies prednisolone Allergy (Verified 06/16/17 20:32) RASH pt states she can take brand name Christoph but cannot take generics Review of Systems - Review of Systems Constitutional: Fatigue. absent: Weight Change, Fevers ENT: absent: Sore Throat, Rhinorrhea Respiratory: absent: SOB, Cough Cardiovascular: absent: Chest Pain, Palpitations, Edema Gastrointestinal: absent: Abdominal Pain, Diarrhea, Nausea, Vomiting, Hematochezia, Hematemesis Genitourinary Female: absent: Dysuria, Frequency, Hematuria Musculoskeletal: absent: Arthralgias, Back Pain, Neck Pain Skin: absent: Rash, Pruritis, Skin Lesions Physical Exam - Physical Exam Narrative Physical Exam (Text): 06/16/17 23:26 GENERALIZED APPEARANCE: Patient is awake, alert, oriented x3 in no acute distress. SKIN: Warm, dry; (-) cyanosis. HEAD: (-) scalp swelling or tenderness. EYES: (-) conjunctival pallor. ENMT: Mucous membranes moist. NECK: (-) tenderness, (-) stiffness, (-) lymphadenopathy. Carotids: (-) bruit. CHEST AND RESPIRATORY: (-) rales, (-) rhonchi, (-) wheezes; breath sounds equal bilaterally. HEART AND CARDIOVASCULAR: (-) irregularity; (-) murmur, (-) gallop. ABDOMEN AND GI: Soft; (-) distention, (-) tenderness, (-) rebound, (-) guarding , (-) palpable masses, (-) flank tenderness. RECTAL: (-) tenderness, (-) mass; Stool guaiac (-) with control monitor performed. A female RN, loom mechanic was present with me during the entire examination. EXTREMITIES: (-) deformity; (-) edema. Distal pulses: present. NEURO AND PSYCH: Mental status as above. service member: (-) nystagmus; Pupils equal and reactive. EOMI, (-) facial asymmetry; (-) dysarthria; tongue and uvula midline. Strength and DTRs symmetric. Gait: normal. Vital Signs Reviewed: Yes Vital Signs Temp Pulse Resp BP Pulse Ox 06/16/17 20:33 98.8 F 94 H 18 112/64 100 Temperature: Afebrile Blood Pressure: Normal Pulse: Regular Respiratory Rate: Normal Medical Decision Making ED Course and Treatment: 06/16/17 23:28 Plan : - Labs - Uhcg - UA Uhcg (-) UA (-) Labs reviewed : pt noted ot have a wbc of 13 and hgb of 9.7, hct 31. Previous medical records reviewed : on 11/20/16 pt had a wbc of 15 and hgb of 12.1. On 06/07/16, pt was kept for inpt obs for SLE flare, noted to have leukocytosis of 17.3 and was also noted to have anemia of hgb 10.5 / hct 33.7 related to lupus. Lab results d/w the patient. Patient admits to a h/o anemia, does not know the cause. Reports having last blood work done last year and was told her hgb was stable. On re-evaluation, patient is laying in bed comfortably, in no acute distress. Has no other complaints. VSS. Based on history, exam and diagnostic results, plan will be for outpatient follow up. Patient instructed to follow-up with her slot service specialist or referral provided in 1-2 days without fail. Return to the emergency room at any time for any new or worsening symptoms. Patient states she fully agrees with and understands discharge instructions. States that she agrees with the plan and disposition. Verbalized and repeated discharge instructions and plan. I have given the patient opportunity to ask any additional questions. - Lab Interpretations Lab Results: 06/16/17 21:55 06/16/17 21:55 Lab Results 06/16/17 22:20: Urine Color Straw, Urine Clarity Clear, Urine pH 7.0, Ur Specific [place] 1.016, Urine Protein Negative, Urine Glucose (UA) >=500, Urine Ketones Negative, Urine Blood Negative, Urine Nitrate Negative, Urine Bilirubin Negative, Urine Urobilinogen 0.2-1.0, Ur Leukocyte Esterase Neg 06/16/17 21:55: Sodium 141, Potassium 3.9, Chloride 102, Carbon Dioxide 25, Anion Gap 18, BUN 9, Creatinine 0.5 L, Est GFR ( Amer) > 60, Est GFR (Non -Af Amer) > 60, Random Glucose 98, Calcium 8.9, Total Bilirubin 0.2, AST 13 L D , ALT 26, Alkaline Phosphatase 58, Total Protein 7.6, Albumin 3.4 L D, Globulin 4.1 H, Albumin/Globulin Ratio 0.8 L, TSH 3rd Generation 2.35 06/16/17 21:55: WBC 13.8 H, RBC 4.08, Hgb 9.7 L D, Hct 31.5 L, MCV 77.3 L D, MCH 23.9 L, MCHC 30.9 L, RDW 16.2 H, Plt Count 349, MPV 8.0, Neut % (Auto) 76.1 H, Lymph % (Auto) 16.5 L, [place] % (Auto) 3.7, Eos % (Auto) 3.3, Baso % (Auto) 0.4 , Neut # (Auto) 10.5 H, Lymph # (Auto) 2.3, [place] # (Auto) 0.5, Eos # (Auto) 0.5 , Baso # (Auto) 0.1 - PA / 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 Disposition/Present on Arrival - Present on Arrival Any Indicators Present on Arrival: No History of DVT/PE: No History of Uncontrolled Diabetes: No Urinary Catheter: No - Disposition Have Diagnosis and Disposition been Completed?: Yes Diagnosis: Fatigue, Anemia, H/O systemic lupus erythematosus (SLE) Disposition: HOME/ ROUTINE Disposition Time: 23:30 Patient Plan: Discharge Condition: STABLE Discharge Instructions (ExitCare): Anemia of Chronic Disease, Fatigue (DC) Additional Instructions: Thank you for letting us take care of you today. You were treated for fatigue, anemia, h/o SLE. The emergency medical care you received today was directed at your acute symptoms. Return to the Emergency Department if your symptoms worsen , do not improve, or if you have any other problems. Please contact your slot service specialist in 2 days for re-evaluation and follow up / or call one of the physicians/clinics you have been referred to that are listed on the Patient Visit Information form that is included in your discharge packet. Bring any paperwork you were given at discharge with you along with any medications you are taking to your follow up visit. Our treatment cannot replace ongoing medical care by a primary care provider (PCP) outside of the emergency department. Thank you for allowing the [facility] team to be part of your care today. Referrals: [facility] [Outside] Forms: [employer] (Georgian), [facility] ED School/Work Excuse
== END 2017-06-17 00:06 | disposition home or self-care (01) ==
LOC: H.ER 19:58
DX: D64.9 Anemia, unspecified (principal); M32.9 Systemic lupus erythematosus, unspecified

== ENCOUNTER 2017-07-24 12:57 | Inpatient (IN) | payer OTHER ==
--- NOTE | 2017-07-24 13:33 | ED PDOC ---
HPI: General Adult Time Seen by Provider: 07/24/17 13:02 Chief Complaint (Nursing): Chest Pain History Per: Patient History/Exam Limitations: no limitations Onset/Duration Of Symptoms: Intermittent Episodes, Other (x 1 month) Current Symptoms Are (Timing): Still Present Additional Complaint(s): 21-year-old female, lupus, presents to ED complaining of chest pain and shortness of breath intermittently x 1 month associated with cough and clear sputum production. No fever. Reports pain on inspiration. PMD: Oneida Gandhi MD Past Medical History Reviewed: Historical Data, Nursing Documentation, Vital Signs Vital Signs: Last Vital Signs Temp 98.5 F 07/24/17 13:05 Pulse 109 H 07/24/17 13:05 Resp 18 07/24/17 13:05 BP 107/57 L 07/24/17 13:05 Pulse Ox 99 07/24/17 13:36 - Medical History PMH: Denies: Chronic Kidney Disease Other PMH: Lupus - Surgical History Surgical History: No Surg Hx - Family History Family History: States: Unknown Family Hx - Home Medications Home Medications: Ambulatory Orders Medication Instructions Recorded hydrOXYzine HCl [Atarax] 25 mg PO Q6 PRN #20 tab 06/08/16 predniSONE [Prednisone] 10 mg PO TID #16 tab 06/08/16 Methylprednisolone [Medrol Dose 4 mg PO DAILY #21 mg 08/10/16 Pack (21 tabs)] Nitrofurantoin Macrocrystals 1 cap PO BID #14 cap 09/16/16 [Macrobid] traMADol [Ultram] 50 mg PO TID PRN #15 tab 09/16/16 Famotidine [Pepcid] 20 mg PO BID #10 tab 11/20/16 Hydroxyzine HCl 25 mg PO Q6 PRN #20 tablet 11/20/16 Methylprednisolone [Medrol Dose 4 mg PO DAILY #21 mg 11/20/16 Pack (21 tabs)] - Allergies Allergies/Adverse Reactions: Allergies Allergy/AdvReac Type Severity Reaction Status Date / Time prednisolone Allergy RASH Verified 06/16/17 20:32 Review of Systems ROS Statement: Except As Marked, All Systems Reviewed And Found Negative Constitutional: Negative for: Fever Cardiovascular: Positive for: Chest Pain Respiratory: Positive for: Cough, Shortness of Breath, Sputum (Clear), Other ( Pain on inspiration) Physical Exam - Reviewed Nursing Documentation Reviewed: Yes Vital Signs Reviewed: Yes - Physical Exam Skin: Positive for: Rash ((+) Malar Rash: Erythematous, confluent) Cardiovascular/Chest: Positive for: Regular Rate, Rhythm Respiratory: Positive for: Normal Breath Sounds. Negative for: Respiratory Distress Gastrointestinal/Abdominal: Positive for: Normal Exam, Soft. Negative for: Tenderness Extremity: Negative for: Calf Tenderness, Swelling - Laboratory Results Result Diagrams: 07/24/17 13:45 07/24/17 13:45 - ECG O2 Sat by Pulse Oximetry: 99 (RA) Pulse Ox Interpretation: Normal Medical Decision Making Medical Decision Making: Time: 13:35 Plan: - CMP - ED Urine - ED Urine Dipstick - CBC (with differentials) - CXR Scribe Attestation: Documented by Jayce Espino, acting as a scribe for Harry Tirado MD. Provider Scribe Attestation: All medical record entries made by the Scribe were at my direction and personally dictated by me. I have reviewed the chart and agree that the record accurately reflects my personal performance of the history, physical exam, medical decision making, and the department course for this patient. I have also personally directed, reviewed, and agree with the discharge instructions and disposition. Disposition - Clinical Impression Clinical Impression: SLE exacerbation, Pericarditis - Patient ED Disposition Is Patient to be Admitted: Yes - Disposition Disposition Time: 15:43 Condition: FAIR Forms: [employer] (Ukrainian) - Pt Status Changed To: Hospital Disposition Of: Inpatient - Admit Certification Admit to Inpatient:: After my assessment, the patient will require hospitalization for at least two midnights. This is because of the severity of symptoms shown, intensity of services needed, and/or the medical risk in this patient being treated as an outpatient. - POA Present On Arrival: None
[2017-07-24 14:01] LABS: BASO % 0.1 % (0.0-2.0); EOS # 0.3 K/uL (0.0-0.7); EOS % 1.7 % (0.0-4.0); HEMOGLOBIN 9.2 g/dL (12.0-16.0); LYMPH # 1.3 K/uL (1.0-4.3); LYMPH % 7.5 % (20.0-40.0); MEAN CELL VOLUME 73.5 fl (81.0-99.0); MEAN CORPUSCULAR HEMOGLOBIN 23.1 pg (27.0-31.0); MEAN CORPUSCULAR HGB CONC 31.4 g/dL (33.0-37.0); MEAN PLATELET VOLUME 7.7 fl (7.2-11.7); MONO # 0.3 K/uL (0.0-0.8); MONO % 1.8 % (0.0-10.0); NEUT # 15.1 K/uL (1.8-7.0); NEUT % 88.9 % (50.0-75.0); PLATELET COUNT 367 K/uL (130-400); RBC 3.99 Mil/uL (3.80-5.20); RED CELL DISTRIBUTION WIDTH 16.6 % (11.5-14.5)
--- NOTE | 2017-07-24 14:02 | RAD ---
HISTORY: Chest pain COMPARISON: No prior. TECHNIQUE: Chest PA and lateral FINDINGS: LUNGS: No active pulmonary disease. PLEURA: No significant pleural effusion identified. No pneumothorax apparent. CARDIOVASCULAR: Normal. OSSEOUS STRUCTURES: No significant abnormalities. VISUALIZED UPPER ABDOMEN: Normal. OTHER FINDINGS: None. IMPRESSION: No active disease.
[2017-07-24 14:12] LABS: ALB/GLOB RATIO 0.8 (1.0-2.1); ALBUMIN 3.2 g/dL (3.5-5.0); ALT/SGPT 29 U/L (9-52); AST/SGOT 29 U/L (14-36); BLOOD UREA NITROGEN 10 mg/dl (7-17); CALCIUM 8.6 mg/dL (8.4-10.2); GFR AFRICAN-AMERICAN > 60; GFR NON-AFRICAN AMERICAN > 60
[2017-07-24] MEDS ORDERED: Iodixanol 320 MG/ML 100 ML BOTTLE IV ONE (14:45)
[2017-07-24] MEDS ORDERED: Sodium Chloride 0.9% 100 ML ONE (14:45)
[2017-07-24 14:57] LABS: ANISOCYTOSIS SLIGHT; BASOPHIL 1 % (0-2); EOSINOPHIL 1 % (0-7); LYMPHOCYTE 8 % (20-50); MONOCYTE 2 % (0-10); NEUTROPHIL 88 % (42-75); PLATELET ESTIMATE NORMAL (NORMAL); TOTAL CELLS COUNTED 100
[2017-07-24 14:58] LABS: HYPOCHROMIC SLIGHT
--- NOTE | 2017-07-24 15:32 | CT ---
PROCEDURE: CT Chest with contrast (Pulmonary Angiogram) HISTORY: chest pain COMPARISON: Chest radiographs 07/24/2017. TECHNIQUE: Axial computed tomography images were obtained of the chest in the pulmonary arterial phase of enhancement. Coronal and sagittal reformatted images were created and reviewed. Intravenous contrast dose: Visipaque 320, 80 cc Radiation dose: Total exam DLP = 213.99 mGy-cm. This CT exam was performed using one or more of the following dose reduction techniques: Automated exposure control, adjustment of the mA and/or kV according to patient size, and/or use of iterative reconstruction technique. FINDINGS: PULMONARY ARTERIES: Unremarkable. No pulmonary embolism. AORTA: No acute findings. No thoracic aortic aneurysm. LUNGS: Unremarkable. No nodule, mass or pulmonary consolidation. A 2.5 mm noncalcified solid nodule seen subpleural the right lower lobe superior segment image 62 series 6 posteriorly. PLEURAL SPACES: Mild pericardial effusions appreciated the cardiac size appearing somewhat prominent as well. No pulmonary vascular congestion however. No thoracic aortic aneurysm appreciated or significant dilatation of the main pulmonary artery. No effusion or pneuomothorax. HEART: As above. LYMPH NODES: No lymphadenopathy. BONES, CHEST WALL: Unremarkable. No fracture or destructive lesion OTHER FINDINGS: Incidental thickening of the distal esophagus is questioned. Clinically correlate. IMPRESSION: Unremarkable CT pulmonary angiogram. No pulmonary embolus. No definite acute pulmonary findings. Mild pericardial effusion noted however. Cardiac size appears prominent as well. Clinically correlate further. 2.5 mm noncalcified nodule subpleural right lower lobe for which follow-up low-dose screening lung CT advised in 12 months to demonstrate stability. Lung rads 2.
--- NOTE | 2017-07-24 17:01 | CP.PCM.HP ---
History of Present Illness - History of Present Illness History of Present Illness: CHEST PAINS AND SHORTNESS OF BREATH WITH EXERCISE INTOLERANCE X 1 MONTH DENIES COUGH OR SPUTUM PRODUCTION C.O OCCASIONAL FEVER HX OF LUPUS BUT HAS BEEN NON-COMPLIANT WITH MEDS QUIT SMOKING CIGARETTES RECENTLY Present on Admission - Present on Admission Any Indicators Present on Admission: No Review of Systems - Constitutional Constitutional: Fatigue, Fever, Malaise - Cardiovascular Cardiovascular: Chest Pain, Dyspnea on Exertion, Edema - Respiratory Respiratory: Dyspnea, Dyspnea on Exertion - Musculoskeletal Musculoskeletal: Arthralgias Past Patient History - Past Medical History & Family History Past Medical History?: Yes Pertinent Family History: AUNT HAS LUPUS - Past Social History Smoking Status: Current Some Days Smoker - CARDIAC Hx Cardiac Disorders: No - PULMONARY Hx Respiratory Disorders: No - NEUROLOGICAL Hx Neurological Disorder: No - HEENT Hx HEENT Problems: No - RENAL Hx Chronic Kidney Disease: No - ENDOCRINE/METABOLIC Hx Systemic Lupus Erythematosus: Yes - HEMATOLOGICAL/ONCOLOGICAL Hx Blood Disorders: No - INTEGUMENTARY Hx Dermatological Problems: No - MUSCULOSKELETAL/RHEUMATOLOGICAL Hx Falls: No - GASTROINTESTINAL Hx Constipation: Yes - GENITOURINARY/GYNECOLOGICAL Hx Genitourinary Disorders: No - PSYCHIATRIC Hx Psychophysiologic Disorder: No Hx Substance Use: Yes (use marijuana evry other day) - SURGICAL HISTORY Hx Surgeries: No - ANESTHESIA Hx Anesthesia: No Meds Allergies/Adverse Reactions: Allergies Allergy/AdvReac Type Severity Reaction Status Date / Time prednisolone Allergy RASH Verified 06/16/17 20:32 Physical Exam - Constitutional Appears: No Acute Distress - Head Exam Head Exam: ATRAUMATIC, NORMAL INSPECTION, NORMOCEPHALIC Additional comments: MALAR RASH OF FACE - Eye Exam Eye Exam: EOMI, Normal appearance, PERRL Pupil Exam: NORMAL ACCOMODATION, PERRL - ENT Exam ENT Exam: Mucous Membranes Moist, Normal Exam - Neck Exam Neck exam: Positive for: Normal Inspection - Respiratory Exam Respiratory Exam: Clear to Auscultation Bilateral, NORMAL BREATHING PATTERN - Cardiovascular Exam Cardiovascular Exam: Tachycardia, REGULAR RHYTHM - GI/Abdominal Exam GI & Abdominal Exam: Normal Bowel Sounds, Soft. absent: Tenderness - Rectal Exam Rectal Exam: NORMAL INSPECTION - Extremities Exam Extremities exam: Positive for: normal inspection, pedal edema - Back Exam Back exam: NORMAL INSPECTION - Neurological Exam Neurological exam: Alert, CN II-XII Intact, Normal Gait, Oriented x3, Reflexes Normal - Psychiatric Exam Psychiatric exam: Normal Affect, Normal Mood - Skin Skin Exam: Dry, Erythema, Intact, Normal Color, Rash, Warm Additional comments: MALAR RASH Results - Vital Signs Recent Vital Signs: Last Vital Signs Temp 98.6 F 07/24/17 16:51 Pulse 107 H 07/24/17 16:51 Resp 18 07/24/17 16:51 BP 107/63 07/24/17 16:51 Pulse Ox 100 07/24/17 16:51 - Labs Result Diagrams: 07/24/17 13:45 07/24/17 13:45 Labs: Laboratory Results - last 24 hr 07/24/17 07/24/17 13:45 13:45 WBC 17.0 H RBC 3.99 Hgb 9.2 L Hct 29.3 L MCV 73.5 L D MCH 23.1 L MCHC 31.4 L RDW 16.6 H Plt Count 367 MPV 7.7 Neut % (Auto) 88.9 H Lymph % (Auto) 7.5 L [place] % (Auto) 1.8 Eos % (Auto) 1.7 Baso % (Auto) 0.1 Neut # (Auto) 15.1 H Lymph # (Auto) 1.3 [place] # (Auto) 0.3 Eos # (Auto) 0.3 Baso # (Auto) 0.0 Neutrophils % (Manual) 88 H Lymphocytes % (Manual) 8 L Monocytes % (Manual) 2 Eosinophils % (Manual) 1 Basophils % (Manual) 1 Platelet Estimate Normal Hypochromasia (manual) Slight Anisocytosis (manual) Slight Sodium 140 Potassium 4.3 Chloride 100 Carbon Dioxide 28 Anion Gap 16 BUN 10 Creatinine 0.5 L Est GFR ( Amer) > 60 Est GFR (Non-Af Amer) > 60 Random Glucose 85 Calcium 8.6 Total Bilirubin 0.4 AST 29 ALT 29 Alkaline Phosphatase 71 Total Protein 7.4 Albumin 3.2 L Globulin 4.2 H Albumin/Globulin Ratio 0.8 L Assessment & Plan - Assessment and Plan (Free Text) Assessment: SHORTNESS OF BREATH WITH CHEST PAIN DUE TO LUPUS EXACERBATION AND PERICARDIAL EFFUSION NO EVIDENCE OF TAMPONADE Plan: CARDIOLOGY EVAL IV STEROIDS O2 [place] RX
[2017-07-24] MEDS: Pantoprazole 40 mg EC Tab PO SCH (21:42)
[2017-07-25 06:05] LABS: HEMOGLOBIN 9.3 g/dL (12.0-16.0); MEAN CELL VOLUME 74.5 fl (81.0-99.0); MEAN CORPUSCULAR HEMOGLOBIN 23.3 pg (27.0-31.0); MEAN CORPUSCULAR HGB CONC 31.2 g/dL (33.0-37.0); RBC 3.98 Mil/uL (3.80-5.20); WHITE BLOOD COUNT 15.2 K/uL (4.8-10.8)
[2017-07-25 06:26] LABS: ALB/GLOB RATIO 0.7 (1.0-2.1); ALBUMIN 3.1 g/dL (3.5-5.0); ALT/SGPT 25 U/L (9-52); AST/SGOT 31 U/L (14-36); BLOOD UREA NITROGEN 9 mg/dl (7-17); CALCIUM 8.9 mg/dL (8.4-10.2); GFR AFRICAN-AMERICAN > 60; GFR NON-AFRICAN AMERICAN > 60
[2017-07-25] MEDS ORDERED: DiphenhydrAMINE 50 mg/ml Inj IVP STA (08:46)
--- NOTE | 2017-07-25 08:51 | CP.PCM.PN ---
Subjective - Date & Time of Evaluation Date of Evaluation: 07/25/17 Time of Evaluation: 08:51 - Subjective Subjective: CRYING BECAUSE OF PRURITIS DUE TO IV STEROIDS NO CHEST PAINS/SOB Objective - Vital Signs/Intake and Output Vital Signs (last 24 hours): Temp Pulse Resp BP Pulse Ox 97.6 F 78 20 110/59 L 99 07/25/17 08:17 07/25/17 08:17 07/25/17 08:17 07/25/17 08:17 07/25/17 08:17 - Medications Medications: Current Medications Acetaminophen (Tylenol 325mg Tab) 650 mg PO Q4 PRN PRN Reason: Fever >100.4 F Aspirin (Aspirin Chewable) 81 mg PO DAILY [facility] Diphenhydramine HCl (Benadryl) 50 mg IVP DAILY [facility] Diphenhydramine HCl (Benadryl) 25 mg IVP STAT STA Stop: 07/25/17 08:47 Enoxaparin Sodium (Lovenox) 40 mg SC DAILY [facility] PRN Reason: Protocol Hydroxychloroquine Sulfate (Plaquenil) 200 mg PO DAILY [facility] PRN Reason: Protocol Methylprednisolone 1 gm/ (Sodium Chloride) 250 mls @ 62.5 mls/hr IV DAILY [facility] Pantoprazole Sodium (Protonix Ec Tab) 40 mg PO BID [facility] Last Admin: 07/24/17 21:42 Dose: 40 mg - Labs Labs: 07/25/17 04:30 07/25/17 04:30 - Constitutional Appears: In Acute Distress - Head Exam Head Exam: ATRAUMATIC, NORMAL INSPECTION, NORMOCEPHALIC - Eye Exam Eye Exam: EOMI, Normal appearance, PERRL Pupil Exam: NORMAL ACCOMODATION, PERRL - ENT Exam ENT Exam: Mucous Membranes Moist, Normal Exam - Neck Exam Neck Exam: Full ROM, Normal Inspection. absent: Lymphadenopathy - Respiratory Exam Respiratory Exam: Clear to Ausculation Bilateral, NORMAL BREATHING PATTERN - Cardiovascular Exam Cardiovascular Exam: REGULAR RHYTHM, +S1, +S2. absent: Murmur - GI/Abdominal Exam GI & Abdominal Exam: Soft, Normal Bowel Sounds. absent: Tenderness - Rectal Exam Rectal Exam: NORMAL INSPECTION - Extremities Exam Extremities Exam: Full ROM, Normal Capillary Refill, Normal Inspection. absent : Joint Swelling, Pedal Edema - Back Exam Back Exam: NORMAL INSPECTION - Neurological Exam Neurological Exam: Alert, Awake, CN II-XII Intact, Normal Gait, Oriented x3 - Psychiatric Exam Psychiatric exam: Normal Affect, Normal Mood - Skin Skin Exam: Dry, Intact, Rash, Warm Assessment and Plan - Assessment and Plan (Free Text) Assessment: ACUTE EXAC OF LUPUS PERICARDIAL EFFUSION SKIN RASH--RXN TO STEROIDS Plan: DECREASE STEROID DOSE BENADRYL,PRN
[2017-07-25] MEDS: Enoxaparin 40 mg Syringe SC SCH (08:54)
[2017-07-25] MEDS: DiphenhydrAMINE 50 mg/ml Inj IVP SCH (08:55)
[2017-07-25] MEDS: Pantoprazole 40 mg EC Tab PO SCH ×2 (08:55→16:43)
[2017-07-25] MEDS ORDERED: methylPREDNISolone 125 MG in Sodium Chloride 0.9% 50 ML IVPB SCH (09:00)
[2017-07-25] MEDS ORDERED: methylPREDNISolone 1 GM in Sodium Chloride 0.9% 250 ML IV SCH (09:00)
--- NOTE | 2017-07-25 10:31 | CP.PCM.PN ---
Subjective - Date & Time of Evaluation Date of Evaluation: 07/25/17 Time of Evaluation: 09:00 - Subjective Subjective: this 21-year -old female was diagnosed as having lupus 3 years back had stopped taking her medications because they did not agree with her. She has now come into the hospital complaining of a vague sense of chest discomfort off-and-on quite unconnected to any physical activity. She denies any aggravation of this discomfort with deep inspiration or change in posture. The discomfort occurred intermittently and spontaneously resolved. It did not radiate down the arms or into her jaw and was not accompanied by any nausea vomiting or perspiration. She denies smoking cigarettes. She denies having hypertension or diabetes. One of her aunts has lupus as well. Physical examination shows a young pleasant female who complains of extreme itchiness. Able to lie virtually flat and breathe comfortably at 16 breaths per minute and can carry on a conversation and is free of pain at this point. Her heart rate was 68 bpm regular and her blood pressure was 102/70 meters of mercury. Her jugular venous pressure was not elevated and there was no edema of her lower extremity. There was an erythematous rash on her cheeks and across the bridge of her nose. Her apex was not palpable. The first and second heart sounds were normal. There was no murmur or gallop. There was no pericardial rub. Her electric cart a gram showed sinus rhythm with a normal EKG pattern. Her echocardiogram shows evidence off a small amount of pericardial fluid without any evidence of right ventricular or right atrial compression during diastole. No echocardiographic evidence of tamponade. Her lab data was noted. She has a microcytic anemia and her sedimentation rate was 75 mm/h. Her BUN/creatinine were noted. Impression: small pericardial fluid probably secondary to lupus. There is no evidence of cardiac temponade and hemodynamic instability.no further cardiac intervention is recommended. Objective - Vital Signs/Intake and Output Vital Signs (last 24 hours): Temp Pulse Resp BP Pulse Ox 97.6 F 78 20 110/59 L 99 07/25/17 08:17 07/25/17 08:17 07/25/17 08:17 07/25/17 08:17 07/25/17 08:17 - Medications Medications: Current Medications Acetaminophen (Tylenol 325mg Tab) 650 mg PO Q4 PRN PRN Reason: Fever >100.4 F Aspirin (Aspirin Chewable) 81 mg PO DAILY [facility] Last Admin: 07/25/17 08:54 Dose: 81 mg Diphenhydramine HCl (Benadryl) 50 mg IVP DAILY [facility] Last Admin: 07/25/17 08:55 Dose: 50 mg Enoxaparin Sodium (Lovenox) 40 mg SC DAILY [facility] PRN Reason: Protocol Last Admin: 07/25/17 08:54 Dose: 40 mg Hydroxychloroquine Sulfate (Plaquenil) 200 mg PO DAILY [facility] PRN Reason: Protocol Last Admin: 07/25/17 08:55 Dose: 200 mg Methylprednisolone (Solu-Medrol) 125 mg IV DAILY [facility] Last Admin: 07/25/17 09:23 Dose: 125 mg Pantoprazole Sodium (Protonix Ec Tab) 40 mg PO BID [facility] Last Admin: 07/25/17 08:55 Dose: 40 mg - Labs Labs: 07/25/17 04:30 07/25/17 04:30
--- NOTE | 2017-07-25 11:45 | CARD ---
APPROVED REPORT EXAM: Two-dimensional and M-mode echocardiogram with Doppler and color Doppler. Other Information Quality : GoodRhythm : Tachycardia INDICATION Pericarditis 2D DIMENSIONS IVSd0.34 (0.7-1.1cm)LVDd5.14 (3.9-5.9cm) LVOT Diameter1.63 (1.8-2.4cm)PWd0.91 (0.7-1.1cm) IVSs0.88 (0.8-1.2cm)LVDs3.90 (2.5-4.0cm) FS (%) 24.1 %PWs0.91 (0.8-1.2cm) M-Mode DIMENSIONS Left Atrium (MM)3.91 (2.5-4.0cm)IVSd0.90 (0.7-1.1cm) Aortic Root2.44 (2.2-3.7cm)LVDd5.71 (4.0-5.6cm) Aortic Cusp Exc.2.06 (1.5-2.0cm)PWd1.08 (0.7-1.1cm) IVSs1.18 cmFS (%) 18 % LVDs4.66 (2.0-3.8cm)PWs0.85 cm Mitral Valve MV E Yhiebenp27.2cm/sMV DECEL TTAT058uoEC A Yppmxygs82.2cm/s MV LML96ehQ/A ratio1.4MVA (PHT)5.46cm2 TDI E/Lateral E'0.0E/Medial E'0.0 Pulmonary Valve PV Peak Ejihuwwh069.7cm/s Tricuspid Valve RAP XXSIGSAG90mqLx LEFT VENTRICLE The left ventricle is normal size. There is normal left ventricular wall thickness. The left ventricular function is normal. The left ventricular ejection fraction is 60-65% There is normal LV segmental wall motion. The left ventricular diastolic function is normal. No left ventricle thrombus noted on this study. There is no ventricular septal defect visualized. There is no left ventricular aneurysm. There is no mass noted in the left ventricle. RIGHT VENTRICLE The right ventricle is normal size. There is normal right ventricular wall thickness. The right ventricular systolic function is normal. ATRIA The left atrium size is normal. The right atrium size is normal. The interatrial septum is intact with no evidence for an atrial septal defect. AORTIC VALVE The aortic valve is normal in structure. No aortic regurgitation is present. There is no aortic valvular stenosis. There is no aortic valvular vegetation. MITRAL VALVE The mitral valve is normal in structure. There is no evidence of mitral valve prolapse. There is no mitral valve stenosis. There is no mitral valve regurgitation noted. TRICUSPID VALVE The tricuspid valve is normal in structure. There is no tricuspid valve regurgitation noted. There is no tricuspid valve prolapse or vegetation. There is no tricuspid valve stenosis. PULMONIC VALVE The pulmonary valve is normal in structure. There is no pulmonic valvular regurgitation. There is no pulmonic valvular stenosis. GREAT VESSELS The aortic root is normal in size. The ascending aorta is normal in size. The IVC is normal in size and collapses >50% with inspiration. PERICARDIAL EFFUSION There is a small pericardial effusion present. Located primarily posteriorly. There are no echocardiographic signs of tamponade. ( No RV diastolic collapse, Normal IVC respiratory variability, Normal TV, MV flow variation) There is no pleural effusion. <Conclusion> Normal LV systolic function Small Pericardial Effusion No echocardiographic signs of tamponade
--- NOTE | 2017-07-25 12:23 | CARD ---
APPROVED REPORT EKG Measurement Heart [id number] [place] [id number] [id number] <Conclusion> Sinus tachycardia with short [place] Otherwise normal ECG
[2017-07-25 20:15] LABS: SQUAMOUS EPITHIAL 4 /hpf (0-5); URINE BILIRUBIN NEGATIVE (NEGATIVE); URINE BLOOD NEGATIVE (NEGATIVE); URINE CLARITY SLIGHTY-CLOUDY (Clear); URINE COLOR YELLOW (YELLOW); URINE GLUCOSE (UA) NEG (Normal); URINE LEUKOCYTE ESTERASE NEG Leu/uL (Negative); URINE PROTEIN NEGATIVE (NEGATIVE); URINE UROBILINOGEN 0.2-1.0 mg/dL (0.2-1.0)
[2017-07-26] MEDS: DiphenhydrAMINE 50 mg/ml Inj IVP SCH (08:40)
[2017-07-26] MEDS: Pantoprazole 40 mg EC Tab PO SCH (08:42)
[2017-07-26] MEDS: Enoxaparin 40 mg Syringe SC SCH (08:44)
[2017-07-26 12:02] VITALS: O2SAT 99
--- NOTE | 2017-07-26 13:40 | CP.PCM.DIS ---
Provider - Provider Date of Admission: 07/24/17 15:40 Attending physician: Ihsan Lentz MD Time Spent in preparation of Discharge (in minutes): 30 Diagnosis - Discharge Diagnosis (1) Pericardial effusion Status: Acute (2) Pericarditis Status: Acute (3) SLE exacerbation Status: Acute Hospital Course - Lab Results Lab Results: Micro Results 07/25/17 09:00 Urine Urine Culture - Final >100,000 CFU/ML. MULTIPLE SPECIES. SUGGEST REPEAT SPECIMEN. Most Recent Lab Values WBC 15.2 K/uL (4.8-10.8) H 07/25/17 04:30 RBC 3.98 Mil/uL (3.80-5.20) 07/25/17 04:30 Hgb 9.3 g/dL (12.0-16.0) L 07/25/17 04:30 Hct 29.6 % (34.0-47.0) L 07/25/17 04:30 MCV 74.5 fl (81.0-99.0) L 07/25/17 04:30 MCH 23.3 pg (27.0-31.0) L 07/25/17 04:30 MCHC 31.2 g/dL (33.0-37.0) L 07/25/17 04:30 RDW 16.0 % (11.5-14.5) H 07/25/17 04:30 Plt Count 367 K/uL (130-400) 07/25/17 04:30 MPV 7.7 fl (7.2-11.7) 07/24/17 13:45 Neut % (Auto) 88.9 % (50.0-75.0) H 07/24/17 13:45 Lymph % (Auto) 7.5 % (20.0-40.0) L 07/24/17 13:45 [place] % (Auto) 1.8 % (0.0-10.0) 07/24/17 13:45 Eos % (Auto) 1.7 % (0.0-4.0) 07/24/17 13:45 Baso % (Auto) 0.1 % (0.0-2.0) 07/24/17 13:45 Neut # (Auto) 15.1 K/uL (1.8-7.0) H 07/24/17 13:45 Lymph # (Auto) 1.3 K/uL (1.0-4.3) 07/24/17 13:45 [place] # (Auto) 0.3 K/uL (0.0-0.8) 07/24/17 13:45 Eos # (Auto) 0.3 K/uL (0.0-0.7) 07/24/17 13:45 Baso # (Auto) 0.0 K/uL (0.0-0.2) 07/24/17 13:45 Neutrophils % (Manual) 88 % (42-75) H 07/24/17 13:45 Lymphocytes % (Manual) 8 % (20-50) L 07/24/17 13:45 Monocytes % (Manual) 2 % (0-10) 07/24/17 13:45 Eosinophils % (Manual) 1 % (0-7) 07/24/17 13:45 Basophils % (Manual) 1 % (0-2) 07/24/17 13:45 Platelet Estimate Normal (NORMAL) 07/24/17 13:45 Hypochromasia (manual) Slight 07/24/17 13:45 Anisocytosis (manual) Slight 07/24/17 13:45 ESR 72 mm/hr (0-20) H 07/25/17 04:30 Sodium 143 mmol/l (132-148) 07/25/17 04:30 Potassium 4.2 MMOL/L (3.6-5.0) 07/25/17 04:30 Chloride 101 mmol/L (98-107) 07/25/17 04:30 Carbon Dioxide 28 mmol/L (22-30) 07/25/17 04:30 Anion Gap 18 (10-20) 07/25/17 04:30 BUN 9 mg/dl (7-17) 07/25/17 04:30 Creatinine 0.4 mg/dl (0.7-1.2) L 07/25/17 04:30 Est GFR ( Amer) > 60 07/25/17 04:30 Est GFR (Non-Af Amer) > 60 07/25/17 04:30 Random Glucose 146 mg/dL (65-105) H 07/25/17 04:30 Calcium 8.9 mg/dL (8.4-10.2) 07/25/17 04:30 Total Bilirubin 0.2 mg/dl (0.2-1.3) 07/25/17 04:30 AST 31 U/L (14-36) 07/25/17 04:30 ALT 25 U/L (9-52) 07/25/17 04:30 Alkaline Phosphatase 84 U/L (38-126) 07/25/17 04:30 Total Protein 7.4 G/DL (6.3-8.2) 07/25/17 04:30 Albumin 3.1 g/dL (3.5-5.0) L 07/25/17 04:30 Globulin 4.2 gm/dL (2.2-3.9) H 07/25/17 04:30 Albumin/Globulin Ratio 0.7 (1.0-2.1) L 07/25/17 04:30 Urine Color Yellow (YELLOW) 07/25/17 20:00 Urine Clarity Slighty-cloudy (Clear) 07/25/17 20:00 Urine pH 7.0 (5.0-8.0) 07/25/17 20:00 Ur Specific [place] 1.009 (1.003-1.030) 07/25/17 20:00 Urine Protein Negative mg/dL (NEGATIVE) 07/25/17 20:00 Urine Glucose (UA) Neg mg/dL (Normal) 07/25/17 20:00 Urine Ketones Negative mg/dL (NEGATIVE) 07/25/17 20:00 Urine Blood Negative (NEGATIVE) 07/25/17 20:00 Urine Nitrate Negative (NEGATIVE) 07/25/17 20:00 Urine Bilirubin Negative (NEGATIVE) 07/25/17 20:00 Urine Urobilinogen 0.2-1.0 mg/dL (0.2-1.0) 07/25/17 20:00 Ur Leukocyte Esterase Neg [place]/uL (Negative) 07/25/17 20:00 Urine RBC (Auto) < 1 /hpf (0-3) 07/25/17 20:00 Urine Microscopic WBC 1 /hpf (0-5) 07/25/17 20:00 Ur Squamous Epith Cells 4 /hpf (0-5) 07/25/17 20:00 - Hospital Course Hospital Course: CLINICALLY IMPROVED WITH RX Discharge Exam - Head Exam Head Exam: ATRAUMATIC, NORMAL INSPECTION, NORMOCEPHALIC - Eye Exam Eye Exam: EOMI, Normal appearance, PERRL Pupil Exam: NORMAL ACCOMODATION, PERRL - GI/Abdominal Exam GI & Abdominal Exam: Normal Bowel Sounds - Rectal Exam Rectal Exam: NORMAL INSPECTION - Neurological Exam Neurological exam: Alert, CN II-XII Intact, Normal Gait, Oriented x3, Reflexes Normal - Psychiatric Exam Psychiatric exam: Normal Affect, Normal Mood - Skin Skin Exam: Dry, Intact, Normal Color, Warm Discharge Plan - Follow Up Plan Condition: FAIR Disposition: HOME/ ROUTINE Patient education suggested?: Yes Instructions: Pericarditis, Adult (DC), Lupus (DC) Additional Instructions: follow up with pmd in 1 week Referrals: Evaristo Murry MD [Staff Provider] - Ihsan Lentz MD [Staff Provider] - Maisha CAMPA,MD [place] [Non-Staff] -
[2017-07-26 16:21] VITALS: BP 130/73; PULSE 93; RESP 16; TEMP 97.4
== END 2017-07-26 17:12 | disposition home or self-care (01) | DRG 316 ==
LOC: H.ER 12:57 → H.ERHOLD 15:40 → H.TEL 17:35
PROVIDERS: ADMIT Internal Medicine Pulmonary Disease; ATTEND Internal Medicine Pulmonary Disease
DX: I31.3 Pericardial effusion (noninflammatory) (principal); M32.9 Systemic lupus erythematosus, unspecified; D50.9 Iron deficiency anemia, unspecified; F12.90 Cannabis use, unspecified, uncomplicated; L29.8 Other pruritus; T38.0X5A Adverse effect of glucocorticoids and synthetic analogues, initial encounter; Z91.14 Patient's other noncompliance with medication regimen; F17.210 Nicotine dependence, cigarettes, uncomplicated

== ENCOUNTER 2017-07-30 10:46 | Inpatient (IN) | payer OTHER ==
[2017-07-30 11:11] VITALS: BMI 24.8
[2017-07-30 13:41] LABS: BASO # 0.1 K/uL (0.0-0.2); BASO % 0.3 % (0.0-2.0); EOS # 0.3 K/uL (0.0-0.7); HEMOGLOBIN 9.1 g/dL (12.0-16.0); LYMPH % 16.6 % (20.0-40.0); MEAN CELL VOLUME 75.3 fl (81.0-99.0); MEAN CORPUSCULAR HEMOGLOBIN 23.5 pg (27.0-31.0); MEAN CORPUSCULAR HGB CONC 31.2 g/dL (33.0-37.0); MEAN PLATELET VOLUME 7.9 fl (7.2-11.7); MONO # 0.8 K/uL (0.0-0.8); MONO % 3.2 % (0.0-10.0); NEUT # 19.1 K/uL (1.8-7.0); NEUT % 78.9 % (50.0-75.0); NRBC % 0.1 % (0.0-0.0); RBC 3.85 Mil/uL (3.80-5.20); RED CELL DISTRIBUTION WIDTH 16.8 % (11.5-14.5); WHITE BLOOD COUNT 24.2 K/uL (4.8-10.8)
--- NOTE | 2017-07-30 13:43 | ED PDOC ---
Upper Extremity Pain/Injury Time Seen by Provider: 07/30/17 12:25 Chief Complaint (Nursing): Lower Extremity Problem/Injury Chief Complaint (Provider): right arm swelling & b/l leg pain History Per: Patient History/Exam Limitations: no limitations Onset/Duration Of Symptoms: Days (x4) Current Symptoms Are (Timing): Still Present Quality: "Pain" Additional Complaint(s): Rema Callaway is a 21 year old female, with a past medical history of Lupus, who presents to the emergency department complaining of right arm swelling and b/l crampy leg pain pain onset for x4 days. Patient reports she was recently discharged from [place] for a cardiac issue associated with her Lupus, she was discharged with steroids. Patient is concerned her swelling might be due to a clot. She denies any fever, chills, or other medical complaints. PMD: Ihsan Lentz I Past Medical History Reviewed: Historical Data, Nursing Documentation, Vital Signs Vital Signs: Last Vital Signs Temp 98.5 F 07/30/17 12:14 Pulse 83 07/30/17 12:14 Resp 18 07/30/17 12:14 BP 116/67 07/30/17 12:14 Pulse Ox 100 07/30/17 12:14 - Medical History PMH: Denies: Chronic Kidney Disease Other PMH: Lupus - Surgical History Surgical History: No Surg Hx - Family History Family History: States: Unknown Family Hx - Home Medications Home Medications: Ambulatory Orders Medication Instructions Recorded Cider Vinegar [Apple Cider Vinegar] 1 tab PO DAILY 07/24/17 Mv,Ca,Min/Iron/FA/Guarana/Caff 1 tab PO DAILY 07/24/17 [One-A-Day Women's Tablet] Turmeric Root Extract [Turmeric] 500 mg PO DAILY 07/24/17 Prednisone [Deltasone] 20 mg PO DAILY #30 tablet 07/26/17 Hydroxychloroquine Sulfate 200 mg PO Q12 07/30/17 [Plaquenil] - Allergies Allergies/Adverse Reactions: Allergies Allergy/AdvReac Type Severity Reaction Status Date / Time prednisone Allergy RASH Verified 07/30/17 12:26 Review of Systems ROS Statement: Except As Marked, All Systems Reviewed And Found Negative Constitutional: Negative for: Fever, Chills Cardiovascular: Negative for: Chest Pain, Palpitations Respiratory: Negative for: Cough, Shortness of Breath Musculoskeletal: Positive for: Arm Pain (right arm swelling), Leg Pain (b/l) Physical Exam - Reviewed Nursing Documentation Reviewed: Yes Vital Signs Reviewed: Yes - Physical Exam Appears: Positive for: Non-toxic, No Acute Distress Head Exam: Positive for: ATRAUMATIC, NORMOCEPHALIC Skin: Positive for: Normal Color, Warm, Dry Eye Exam: Positive for: Normal appearance ENT: Positive for: Normal ENT Inspection Neck: Positive for: Painless ROM Cardiovascular/Chest: Positive for: Regular Rate, Rhythm. Negative for: Murmur Respiratory: Positive for: Normal Breath Sounds. Negative for: Respiratory Distress Extremity: Positive for: Normal ROM (upper and lower extremities), Swelling ( Posterior proximal forearm 3cm area w/ mild edema and erythema. Consistent with insect bite). Negative for: Tenderness, Deformity Neurologic/Psych: Positive for: Alert, Oriented. Negative for: Motor/Sensory Deficits - Laboratory Results Result Diagrams: 07/30/17 13:32 07/30/17 13:32 - ECG O2 Sat by Pulse Oximetry: 100 (RA) Pulse Ox Interpretation: Normal Medical Decision Making Medical Decision Making: Initial Impression: Bug bite Initial Plan: --CMP --Urine --CBC w/ differential --Duplex Lower extrm vein bilat [US] --Duplex upper EXT ART RT LMTD [US] Pt con prednisone with elevated WBC - Called Dr. Lentz to discussed. He would like patient admitted for further evaluation. (-) DVT Scribe Attestation: Documented by Siddhartha Duong, acting as a scribe for Thuy Akers PA-C Provider Scribe Attestation: All medical record entries made by the Scribe were at my direction and personally dictated by me. I have reviewed the chart and agree that the record accurately reflects my personal performance of the history, physical exam, medical decision making, and the department course for this patient. I have also personally directed, reviewed, and agree with the discharge instructions and disposition. Disposition - Clinical Impression Clinical Impression: Leukocytosis - Patient ED Disposition Is Patient to be Admitted: Yes - Disposition Disposition Time: 17:01 Condition: STABLE - Pt Status Changed To: Hospital Disposition Of: Inpatient - Admit Certification Admit to Inpatient:: After my assessment, the patient will require hospitalization for at least two midnights. This is because of the severity of symptoms shown, intensity of services needed, and/or the medical risk in this patient being treated as an outpatient. - POA Present On Arrival: None
[2017-07-30 13:53] LABS: ALB/GLOB RATIO 0.8 (1.0-2.1); ALBUMIN 2.9 g/dL (3.5-5.0); ALT/SGPT 49 U/L (9-52); AST/SGOT 25 U/L (14-36); BLOOD UREA NITROGEN 9 mg/dl (7-17); CALCIUM 8.3 mg/dL (8.4-10.2); GFR AFRICAN-AMERICAN > 60; GFR NON-AFRICAN AMERICAN > 60
--- NOTE | 2017-07-30 16:41 | US ---
PROCEDURE: Bilateral lower extremity venous duplex Doppler. HISTORY: pain, swelling COMPARISON: None available. TECHNIQUE: Bilateral common femoral, superficial femoral, popliteal and posterior tibial veins were evaluated. Flow was assessed with color Doppler, compressibility, assessment of phasic flow and augmentation response. FINDINGS: COMMON FEMORAL VEIN: Right CFV: Unremarkable. Left CFV: Unremarkable. SUPERFICIAL FEMORAL VEIN: Right SFV: Unremarkable. Left SFV: Unremarkable. POPLITEAL VEIN: Right Popliteal: Unremarkable. Left Popliteal: Unremarkable. POSTERIOR TIBIAL VEIN: Right PTV: Unremarkable. Left PTV: Unremarkable. OTHER FINDINGS: None. IMPRESSION: No evidence of deep venous thrombosis.
--- NOTE | 2017-07-30 16:43 | US ---
PROCEDURE: Right Upper Extremity Venous Doppler HISTORY: pain, swelling COMPARISON: None available. TECHNIQUE: Right upper extremity deep veins, including the lower internal jugular, subclavian, axillary and brachial veins, were evaluated flow, compressibility and respiratory phasicity. FINDINGS: Normal flow, compressibility and respiratory phasicity was observed in the right upper extremity deep veins. IMPRESSION: No evidence of deep venous thrombosis.
--- NOTE | 2017-07-30 17:44 | RAD ---
HISTORY: Elevated white count. COMPARISON: No prior. TECHNIQUE: Chest PA and lateral FINDINGS: LUNGS: No active pulmonary disease. PLEURA: No significant pleural effusion identified. No pneumothorax apparent. CARDIOVASCULAR: Normal. OSSEOUS STRUCTURES: No significant abnormalities. VISUALIZED UPPER ABDOMEN: Normal. OTHER FINDINGS: None. IMPRESSION: No active disease.
[2017-07-30 18:04] LABS: SQUAMOUS EPITHIAL 4 /hpf (0-5); URINE BACTERIA RARE (<OCC); URINE BILIRUBIN NEGATIVE (NEGATIVE); URINE BLOOD NEGATIVE (NEGATIVE); URINE CLARITY SLIGHTY-CLOUDY (Clear); URINE COLOR YELLOW (YELLOW); URINE GLUCOSE (UA) NEG (Normal); URINE LEUKOCYTE ESTERASE NEG Leu/uL (Negative); URINE PROTEIN 30 mg/dL (NEGATIVE)
[2017-07-31 08:32] LABS: BASO # 0.1 K/uL (0.0-0.2); BASO % 0.3 % (0.0-2.0); EOS # 0.3 K/uL (0.0-0.7); EOS % 1.5 % (0.0-4.0); HEMOGLOBIN 9.8 g/dL (12.0-16.0); LYMPH # 2.4 K/uL (1.0-4.3); LYMPH % 10.7 % (20.0-40.0); MEAN CELL VOLUME 74.1 fl (81.0-99.0); MEAN CORPUSCULAR HEMOGLOBIN 23.8 pg (27.0-31.0); MEAN CORPUSCULAR HGB CONC 32.2 g/dL (33.0-37.0); MONO # 0.6 K/uL (0.0-0.8); MONO % 2.5 % (0.0-10.0); NEUT # 19.1 K/uL (1.8-7.0); RBC 4.1 Mil/uL (3.80-5.20); RED CELL DISTRIBUTION WIDTH 17.2 % (11.5-14.5); WHITE BLOOD COUNT 22.4 K/uL (4.8-10.8)
[2017-07-31 08:42] LABS: ALBUMIN 3.4 g/dL (3.5-5.0); ALT/SGPT 44 U/L (9-52); AST/SGOT 27 U/L (14-36); BLOOD UREA NITROGEN 9 mg/dl (7-17); CALCIUM 8.7 mg/dL (8.4-10.2); GFR AFRICAN-AMERICAN > 60; GFR NON-AFRICAN AMERICAN > 60
[2017-07-31] MEDS ORDERED: levoFLOXacin 500 mg in D5W 500 MG/100 ML BAG IVPB SCH (09:00)
[2017-07-31] MEDS ORDERED: Enoxaparin 40 mg Syringe SC SCH (09:00)
--- NOTE | 2017-07-31 09:00 | CP.PCM.HP ---
History of Present Illness - History of Present Illness History of Present Illness: 21 YR OLD FEMALE ADMITTED BECAUSE OF INFLAMMATION OF R ARM[?INSECT BITE], SWELLING OF LEGS,SHORTNESS OF BREATH AND JOINT PAINS X 1 DAY.SHE WAS RECENTLY DISCHARGED FROM HOSPITAL AFTER THERAPY FOR LUPUS EXACERBATION AND SMALL PERICARDIAL EFFUSION.SHE WAS SEEN BY THE RHEUMATHOLOGIST YESTERDAY,TREATED AND DISCHARGED BUT THEN FELT WORSE AND CAME TO THE ER. SHE STILL HAS JT PAINS BUT SWELLING OF LEGS HAVE IMPROVED WITH IV LASIX. Present on Admission - Present on Admission Any Indicators Present on Admission: No Past Patient History - Past Medical History & Family History Past Medical History?: Yes Pertinent Family History: AUNT HAS LUPUS - Past Social History Smoking Status: one daily - CARDIAC Hx Cardiac Disorders: No - PULMONARY Hx Respiratory Disorders: No - NEUROLOGICAL Hx Neurological Disorder: No - HEENT Hx HEENT Problems: No - RENAL Hx Chronic Kidney Disease: No - ENDOCRINE/METABOLIC Hx Endocrine Disorders: Yes (SLE) Hx Systemic Lupus Erythematosus: Yes - HEMATOLOGICAL/ONCOLOGICAL Hx Blood Disorders: No Hx AIDS: No Hx Human Immunodeficiency Virus (HIV): No - INTEGUMENTARY Hx Dermatological Problems: No - MUSCULOSKELETAL/RHEUMATOLOGICAL Hx Musculoskeletal Disorders: No Hx Falls: No - GASTROINTESTINAL Hx Gastrointestinal Disorders: No - GENITOURINARY/GYNECOLOGICAL Hx Genitourinary Disorders: No - PSYCHIATRIC Hx Psychophysiologic Disorder: No Hx Substance Use: No - SURGICAL HISTORY Hx Surgeries: No - ANESTHESIA Hx Anesthesia: No Meds Allergies/Adverse Reactions: Allergies Allergy/AdvReac Type Severity Reaction Status Date / Time prednisone Allergy RASH Verified 07/30/17 23:49 Physical Exam - Constitutional Appears: Well, In Acute Distress - Head Exam Head Exam: ATRAUMATIC, NORMAL INSPECTION, NORMOCEPHALIC - Eye Exam Eye Exam: EOMI, Normal appearance, PERRL Pupil Exam: NORMAL ACCOMODATION, PERRL - ENT Exam ENT Exam: Mucous Membranes Moist, Normal Exam - Neck Exam Neck exam: Positive for: Normal Inspection - Respiratory Exam Respiratory Exam: Clear to Auscultation Bilateral, NORMAL BREATHING PATTERN - Cardiovascular Exam Cardiovascular Exam: REGULAR RHYTHM - GI/Abdominal Exam GI & Abdominal Exam: Normal Bowel Sounds, Soft. absent: Tenderness - Rectal Exam Rectal Exam: NORMAL INSPECTION - Extremities Exam Extremities exam: Positive for: normal inspection, pedal edema Additional comments: MILD ERYHTEMA OF R UPPER ARM?INSECT BITE - Back Exam Back exam: NORMAL INSPECTION - Neurological Exam Neurological exam: Alert, CN II-XII Intact, Normal Gait, Oriented x3, Reflexes Normal - Psychiatric Exam Psychiatric exam: Normal Affect, Normal Mood - Skin Skin Exam: Dry, Intact, Normal Color, Warm Results - Vital Signs Recent Vital Signs: Last Vital Signs Temp 99.5 F 07/31/17 08:45 Pulse 88 07/31/17 08:45 Resp 20 07/31/17 08:45 BP 107/49 L 07/31/17 08:45 Pulse Ox 99 07/31/17 08:45 - Labs Result Diagrams: 07/31/17 08:12 07/31/17 08:12 Labs: Laboratory Results - last 24 hr 07/30/17 07/30/17 07/30/17 13:32 13:32 17:37 WBC 24.2 H D RBC 3.85 Hgb 9.1 L Hct 29.0 L MCV 75.3 L MCH 23.5 L MCHC 31.2 L RDW 16.8 H Plt Count 325 MPV 7.9 Neut % (Auto) 78.9 H Lymph % (Auto) 16.6 L [place] % (Auto) 3.2 Eos % (Auto) 1.0 Baso % (Auto) 0.3 Neut # (Auto) 19.1 H Lymph # (Auto) 4.0 [place] # (Auto) 0.8 Eos # (Auto) 0.3 Baso # (Auto) 0.1 Sodium 140 Potassium 3.7 Chloride 102 Carbon Dioxide 25 Anion Gap 17 BUN 9 Creatinine 0.5 L Est GFR ( Amer) > 60 Est GFR (Non-Af Amer) > 60 Random Glucose 98 Calcium 8.3 L Total Bilirubin 0.3 AST 25 ALT 49 Alkaline Phosphatase 57 Total Protein 6.4 Albumin 2.9 L Globulin 3.4 Albumin/Globulin Ratio 0.8 L Urine Color Yellow Urine Clarity Slighty-cloudy Urine pH 7.0 Ur Specific [place] 1.021 Urine Protein 30 Urine Glucose (UA) Neg Urine Ketones Negative Urine Blood Negative Urine Nitrate Negative Urine Bilirubin Negative Urine Urobilinogen 2.0 H Ur Leukocyte Esterase Neg Urine RBC (Auto) 1 Urine Microscopic WBC 1 Ur Squamous Epith Cells 4 Urine Bacteria Rare 07/31/17 07/31/17 08:12 08:12 WBC 22.4 H RBC 4.10 Hgb 9.8 L Hct 30.4 L MCV 74.1 L MCH 23.8 L MCHC 32.2 L RDW 17.2 H Plt Count 359 MPV 8.0 Neut % (Auto) 85.0 H Lymph % (Auto) 10.7 L [place] % (Auto) 2.5 Eos % (Auto) 1.5 Baso % (Auto) 0.3 Neut # (Auto) 19.1 H Lymph # (Auto) 2.4 [place] # (Auto) 0.6 Eos # (Auto) 0.3 Baso # (Auto) 0.1 Sodium 135 Potassium 4.1 Chloride 96 L Carbon Dioxide 32 H Anion Gap 11 BUN 9 Creatinine 0.6 L Est GFR ( Amer) > 60 Est GFR (Non-Af Amer) > 60 Random Glucose 100 Calcium 8.7 Total Bilirubin 0.3 AST 27 ALT 44 Alkaline Phosphatase 64 Total Protein 6.9 Albumin 3.4 L Globulin 3.5 Albumin/Globulin Ratio 1.0 Urine Color Urine Clarity Urine pH Ur Specific [place] Urine Protein Urine Glucose (UA) Urine Ketones Urine Blood Urine Nitrate Urine Bilirubin Urine Urobilinogen Ur Leukocyte Esterase Urine RBC (Auto) Urine Microscopic WBC Ur Squamous Epith Cells Urine Bacteria Assessment & Plan - Assessment and Plan (Free Text) Assessment: CELLULITIS OF ARM ACUTE EXACERBATION OF LUPUS HISTORY OF PERICARDIAL EFFUSION LEUKOCYTOSIS PROBABLY DUE TO STEROID THERAPY R/O INFECTION Plan: SEPTIC WORKUP IV ANTIBIOTICS HOLD PREDNISONE FOR NOW REPEAT LABS IN AM PHYSICAL RX EVAL
[2017-07-31] MEDS: levoFLOXacin 500 mg in D5W 500 MG/100 ML BAG IVPB SCH (11:44)
--- NOTE | 2017-07-31 18:05 | CARD ---
APPROVED REPORT EKG Measurement Heart [id number] <Conclusion> Sinus rhythm with short NV Rightward axis Borderline ECG
[2017-08-01 07:19] LABS: BLOOD UREA NITROGEN 9 mg/dl (7-17); GFR AFRICAN-AMERICAN > 60; GFR NON-AFRICAN AMERICAN > 60
[2017-08-01 07:27] LABS: B-TYPE NATRIURETIC PEPTIDE 105 pg/ml (0-450)
[2017-08-01 07:33] LABS: BASO # 0.1 K/uL (0.0-0.2); BASO % 0.2 % (0.0-2.0); EOS # 0.5 K/uL (0.0-0.7); EOS % 1.7 % (0.0-4.0); HEMOGLOBIN 11.1 g/dL (12.0-16.0); LYMPH # 1.9 K/uL (1.0-4.3); LYMPH % 6.8 % (20.0-40.0); MEAN CELL VOLUME 74.5 fl (81.0-99.0); MEAN CORPUSCULAR HEMOGLOBIN 23.8 pg (27.0-31.0); MONO # 0.5 K/uL (0.0-0.8); MONO % 1.8 % (0.0-10.0); NEUT # 24.6 K/uL (1.8-7.0); NEUT % 89.5 % (50.0-75.0); NRBC % 0.1 % (0.0-0.0); PLATELET COUNT 373 K/uL (130-400); RBC 4.65 Mil/uL (3.80-5.20); RED CELL DISTRIBUTION WIDTH 17.9 % (11.5-14.5); WHITE BLOOD COUNT 27.5 K/uL (4.8-10.8)
[2017-08-01] MEDS ORDERED: Oxycodone/Acetaminophen 5/325 mg Tab PO PRN (08:20)
--- NOTE | 2017-08-01 08:25 | CP.PCM.PN ---
Subjective - Date & Time of Evaluation Date of Evaluation: 08/01/17 Time of Evaluation: 08:25 - Subjective Subjective: c/o jt stiffness and fever feels sick Objective - Vital Signs/Intake and Output Vital Signs (last 24 hours): Temp Pulse Resp BP Pulse Ox 98.6 F 94 H 20 101/42 L 100 08/01/17 05:00 08/01/17 00:00 08/01/17 00:00 08/01/17 00:00 08/01/17 00:00 - Medications Medications: Current Medications Acetaminophen (Tylenol 325mg Tab) 650 mg PO Q4 PRN PRN Reason: Fever >100.4 F, pain Last Admin: 07/31/17 20:57 Dose: 650 mg Furosemide (Lasix) 40 mg PO DAILY@1100 [facility] Last Admin: 07/31/17 11:40 Dose: 40 mg Hydroxychloroquine Sulfate (Plaquenil) 200 mg PO Q12@1100,2200 [facility] PRN Reason: Protocol Last Admin: 07/31/17 21:02 Dose: 200 mg Ceftriaxone Sodium 1 gm/ (Sodium Chloride) 100 mls @ 100 mls/hr IVPB DAILY@ 2300 [facility] PRN Reason: Protocol Last Admin: 07/31/17 22:57 Dose: 100 mls/hr Levofloxacin/Dextrose (Levaquin 500mg) 500 mg in 100 mls @ 100 mls/hr IVPB DAILY@1100 [facility] PRN Reason: Protocol Last Admin: 07/31/17 11:44 Dose: 100 mls/hr Oxycodone/Acetaminophen (Percocet 5/325 Mg Tab) 1 tab PO Q4 PRN PRN Reason: Pain, moderate (4-7) Stop: 08/04/17 08:21 - Labs Labs: 08/01/17 06:50 08/01/17 06:50 - Constitutional Appears: In Acute Distress - Head Exam Head Exam: ATRAUMATIC, NORMAL INSPECTION, NORMOCEPHALIC - Eye Exam Eye Exam: EOMI, Normal appearance, PERRL Pupil Exam: NORMAL ACCOMODATION, PERRL - ENT Exam ENT Exam: Mucous Membranes Moist, Normal Exam - Neck Exam Neck Exam: Full ROM, Normal Inspection. absent: Lymphadenopathy - Respiratory Exam Respiratory Exam: Clear to Ausculation Bilateral, NORMAL BREATHING PATTERN - Cardiovascular Exam Cardiovascular Exam: REGULAR RHYTHM, +S1, +S2. absent: Murmur - GI/Abdominal Exam GI & Abdominal Exam: Soft, Normal Bowel Sounds. absent: Tenderness - Rectal Exam Rectal Exam: NORMAL INSPECTION - Extremities Exam Extremities Exam: Full ROM, Normal Capillary Refill, Normal Inspection, Tenderness. absent: Joint Swelling, Pedal Edema - Back Exam Back Exam: NORMAL INSPECTION - Neurological Exam Neurological Exam: Alert, Awake, CN II-XII Intact, Normal Gait, Oriented x3 - Psychiatric Exam Psychiatric exam: Normal Affect, Normal Mood - Skin Skin Exam: Dry, Intact, Normal Color, Warm Assessment and Plan - Assessment and Plan (Free Text) Assessment: acute exac of lupus cellulitis of r arm sepsis hx of pericardial effusion leukocytosis Plan: infectious dz consult low dose iv steroids repeat echo to re-eval pleural effusion
[2017-08-01] MEDS ORDERED: methylPREDNISolone 40 MG in Sodium Chloride 0.9% 50 ML IV SCH (09:00)
[2017-08-01] MEDS: MethylPREDNISolone 40 mg Vial IVP SCH (09:00)
[2017-08-01] MEDS: levoFLOXacin 500 mg in D5W 500 MG/100 ML BAG IVPB SCH (11:00)
[2017-08-01 11:04] LABS: ANISOCYTOSIS SLIGHT; EOSINOPHIL 3 % (0-7); HYPOCHROMIC SLIGHT; LYMPHOCYTE 9 % (20-50); NEUTROPHIL 88 % (42-75); PLATELET ESTIMATE NORMAL (NORMAL); TOTAL CELLS COUNTED 100
[2017-08-01 11:08] LABS: TOXIC GRANULATION PRESENT
[2017-08-01 12:27] LABS: MONOCYTE 0 % (0-10)
--- NOTE | 2017-08-01 14:42 | CARD ---
APPROVED REPORT EXAM: Two-dimensional and M-mode echocardiogram with Doppler and color Doppler. Other Information Quality : GoodRhythm : NSR INDICATION Pericardial Effusion 2D DIMENSIONS IVSd1.13 (0.7-1.1cm)LVDd4.41 (3.9-5.9cm) LVOT Diameter1.78 (1.8-2.4cm)PWd1.12 (0.7-1.1cm) IVSs1.58 (0.8-1.2cm)LVDs3.06 (2.5-4.0cm) FS (%) 30.7 %PWs1.35 (0.8-1.2cm) M-Mode DIMENSIONS Left Atrium (MM)3.64 (2.5-4.0cm)IVSd1.05 (0.7-1.1cm) Aortic Root2.26 (2.2-3.7cm)LVDd4.83 (4.0-5.6cm) Aortic Cusp Exc.1.74 (1.5-2.0cm)PWd0.99 (0.7-1.1cm) IVSs1.63 cmFS (%) 46 % LVDs2.62 (2.0-3.8cm)PWs1.76 cm Mitral Valve MV E Xuqqyzvz28.9cm/sMV DECEL [id number] A Bzaqxvev79.2cm/s MV RUG74lpG/A ratio1.9MVA (PHT)4.69cm2 TDI Lateral E' Peak V11.93cm/sMedial E' Peak V13.59cm/sE/Lateral E'6.2 E/Medial E'5.4 Pulmonary Valve PV Peak Hotkoyaa768.3cm/s LEFT VENTRICLE The left ventricle is normal size. There is normal left ventricular wall thickness. The left ventricular function is normal. The left ventricular ejection fraction is within the normal range. The Ejection Fraction is 60-65%. There is normal LV segmental wall motion. The left ventricular diastolic function is normal. RIGHT VENTRICLE The right ventricle is normal size. There is normal right ventricular wall thickness. The right ventricular systolic function is normal. ATRIA The left atrium size is normal. The right atrium size is normal. AORTIC VALVE The aortic valve is normal in structure. No aortic regurgitation is present. There is no aortic valvular stenosis. MITRAL VALVE The mitral valve is normal in structure. There is no mitral valve stenosis. There is no mitral valve regurgitation noted. TRICUSPID VALVE The tricuspid valve is normal in structure. There is no tricuspid valve regurgitation noted. There is no tricuspid valve stenosis. PULMONIC VALVE The pulmonary valve is normal in structure. There is no pulmonic valvular regurgitation. There is no pulmonic valvular stenosis. GREAT VESSELS The aortic root is normal in size. The IVC is normal in size and collapses >50% with inspiration. PERICARDIAL EFFUSION There is a trace loculated posterior pericardial effusion. <Conclusion> The left ventricle is normal size. The left ventricular function is normal. The left ventricular ejection fraction is within the normal range. The Ejection Fraction is 60-65%. There is a trace loculated posterior pericardial effusion.
--- NOTE | 2017-08-01 17:10 | CP.PCM.CON ---
History of Present Illness - History of Present Illness History of Present Illness: 21 yo female comes to [facility] for eval of elbow pain and leg pains was recently here for similar issues, found to have exac of lupus and started back on her lupus medicationd including prednisone and plaquenil Patient has been off meds for 6 mos , instead taking tumeric root ID consultred for leukocytosis She denies fever chills No travel no pets no chest pain no symptoms Given IV steroids on this admission and started on IV antibiotics all cultures so far negative and repeat echo shows no valvular abnormality and only remnant of small effusion Review of Systems - Review of Systems All systems: reviewed and no additional remarkable complaints except - Constitutional Constitutional: As Per HPI, Malaise. absent: Fever - EENT Eyes: absent: As Per HPI, Blind Spots, Blurred Vision, Change in Vision, Decreased Night Vision, Diplopia, Discharge, Dry Eye, Exophthalmos, Floaters, Irritation, Itchy Eyes, Loss of Peripheral Vision, Pain, Photophobia, Requires Corrective Lenses, Sees Flashes, Spots in Vision, Tunnel Vision, Other Visual Disturbances, Loss of Vision, Other Ears: absent: As Per HPI, Decreased Hearing, Ear Discharge, Ear Pain, Tinnitus, Abnormal Hearing, Disequilibrium, Dizziness, Other Nose/Mouth/Throat: absent: As Per HPI, Epistaxis, Nasal Congestion, Nasal Discharge, Nasal Obstruction, Nasal Trauma, Nose Pain, Post Nasal Drip, Sinus Pain, Sinus Pressure, Bleeding Gums, Change in Voice, Dental Pain, Dry Mouth, Dysphagia, Halitosis, Hoarsness, Lip Swelling, Mouth Lesions, Mouth Pain, Odynophagia, Sore Throat, Throat Swelling, Tongue Swelling, Facial Pain, Neck Pain, Neck Mass, Other - Breasts Breasts: absent: As Per HPI, Change in Shape, Mass, Pain, Nipple Discharge, Nipple Inversion, Skin Changes, Swelling, Other - Cardiovascular Cardiovascular: As Per HPI - Respiratory Respiratory: absent: As Per HPI, Cough, Dyspnea, Hemoptysis, Dyspnea on Exertion , Wheezing, Snoring, Stridor, Pain on Inspiration, Chest Congestion, Excessive Mucous Production, Change in Mucous Color, Pain with Coughing, Other - Gastrointestinal Gastrointestinal: absent: As Per HPI, Abdominal Pain, Belching, Bloating, Change in Bowel Habits, Change in Stool Character, Coffee Ground Emesis, Constipation, Cramping, Diarrhea, Dyspepsia, Dysphagia, Early Satiety, Excessive Flatus, Fecal Incontinence, Heartburn, Hematemesis, Hematochezia, Loose Stools, Melena, Nausea, Odynophagia, Temesmus, Vomiting, Other - Genitourinary Genitourinary: absent: As Per HPI, Change in Urinary Stream, Difficulty Urinating, Dysuria, Flank Pain, Hematuria, Pyuria, Nocturia, Urinary Incontinence, Urinary Frequency, Urinary Hesitance, Urinary Urgency, Voiding Freq/Small Amts, Freq UTI, Hx Renal/Bladder Calculi, Hx /Renal Surgery, Bladder Distension, Other - Reproductive: Female Reproductive:Female: absent: As Per HPI, Amenorrhea, Amenorrhea/ Control, Currently Menstual, Cycle <21 Days, Cycle >35 Days, Cycle Variable, Menses 1-7 Days, Menses >/= 8 Days, Menses Variable, Cycle > 4 Weeks Between, No Menses for 6 Months, Heavy Menses, Light Menses, Normal Menses, Spotting Between Cycles , S/P Hysterectomy, Menopausal, Post Menopausal, Premenarche, Abnormal Vaginal Bleeding, Dysmenorrhea, Dyspareunia, Genital Lesions, Genital Pruritis, Pelvic Pain, Prolapse Symptoms, Sexual Dysfunction, Vaginal Discharge, Vaginal Dryness , Vaginal Odor, Vaginal Pruritis, Other - Menstruation Menstruation: absent: As Per HPI, Amenorrhea, Amenorrhea/ Control, Currently Menstual, Cycle <21 Days, Cycle >35 Days, Cycle Variable, Menses 1-7 Days, Menses >/= 8 Days, Menses Variable, Cycle > 4 Weeks Between, No Menses for 6 Months, Heavy Menses, Light Menses, Normal Menses, Spotting Between Cycles , S/P Hysterectomy, Menopausal, Post Menopausal, Premenarche, Abnormal Vaginal Bleeding, Dysmenorrhea, Other - Musculoskeletal Musculoskeletal: As Per HPI - Integumentary Integumentary: absent: As Per HPI, Acne, Alopecia, Bleeding Lesions, Change in Hair, Change in Nails, Change in Pigmentation, Changing Lesions, Dry Skin, Erythema, Furuncle, Hirsutism, Lesions, New Lesions, Non-Healing Lesions, Photosensitivity, Pruritus, Rash, Skin Pain, Skin Ulcer, Sores, Striae, Swelling , Unusual Bruising, Wounds, Jaundice, Other - Neurological Neurological: absent: As Per HPI, Abnormal Gait, Abnormal Hearing, Abnormal Movements, Abnormal Speech, Behavioral Changes, Burning Sensations, Confusion, Convulsions, Disequilibrium, Dizziness, Numbness, Focal Weakness, Frequent Falls , Headaches, Lack of Coordination, Loss of Vision, Memory Loss, Paresthesias, Radicular Pain, Restless Legs, Sensory Deficit, Syncope, Tingling, Tremor, Vertigo, Weakness, Other Visual Disturbances, Other - Psychiatric Psychiatric: absent: As Per HPI, Abnormal Sleep Pattern, Anhedonia, Anxiety, Auditory Hallucinations, Behavioral Changes, Change in Appetite, Change in Libido, Confusion, Depression, Difficulty Concentrating, Hallucinations, Homicidal Ideation, Hopelessness, Irritability, Memory Loss, Mood Swings, Panic Attacks, Paranoia, Suicidal Ideation, Visual Hallucinations, Tactile Hallucinations, Other - Endocrine Endocrine: absent: As Per HPI, Change in Body Appearance, Change in Libido, Cold Intolorance, Deepening of Voice, Excessive Sweating, Fatigue, Flushing, Heat Intolorance, Increase in Ring/Shoe/Hat Size, Palpitations, Polydipsia, Polyphagia, Polyuria, Other - Hematologic/Lymphatic Hematologic: absent: As Per HPI, Easy Bleeding, Easy Bruising, Lymphadenopathy, Other Past Patient History - Past Medical History & Family History Past Medical History?: Yes - Past Social History Smoking Status: one daily - CARDIAC Hx Cardiac Disorders: No - PULMONARY Hx Respiratory Disorders: No - NEUROLOGICAL Hx Neurological Disorder: No - HEENT Hx HEENT Problems: No - RENAL Hx Chronic Kidney Disease: No - ENDOCRINE/METABOLIC Hx Endocrine Disorders: Yes (SLE) Hx Systemic Lupus Erythematosus: Yes - HEMATOLOGICAL/ONCOLOGICAL Hx Blood Disorders: No Hx AIDS: No Hx Human Immunodeficiency Virus (HIV): No - INTEGUMENTARY Hx Dermatological Problems: No - MUSCULOSKELETAL/RHEUMATOLOGICAL Hx Musculoskeletal Disorders: No Hx Falls: No - GASTROINTESTINAL Hx Gastrointestinal Disorders: No - GENITOURINARY/GYNECOLOGICAL Hx Genitourinary Disorders: No - PSYCHIATRIC Hx Psychophysiologic Disorder: No Hx Substance Use: No - SURGICAL HISTORY Hx Surgeries: No - ANESTHESIA Hx Anesthesia: No Meds Allergies/Adverse Reactions: Allergies Allergy/AdvReac Type Severity Reaction Status Date / Time prednisone Allergy RASH Verified 07/30/17 23:49 - Medications Medications: Current Medications Acetaminophen (Tylenol 325mg Tab) 650 mg PO Q4 PRN PRN Reason: Fever >100.4 F, pain Last Admin: 07/31/17 20:57 Dose: 650 mg Diphenhydramine HCl (Benadryl) 25 mg PO DAILY [facility] Last Admin: 08/01/17 09:00 Dose: 25 mg Furosemide (Lasix) 40 mg PO DAILY@1100 [facility] Last Admin: 08/01/17 10:56 Dose: 40 mg Hydroxychloroquine Sulfate (Plaquenil) 200 mg PO Q12@1100,2200 [facility] PRN Reason: Protocol Last Admin: 08/01/17 10:56 Dose: 200 mg Ceftriaxone Sodium 1 gm/ (Sodium Chloride) 100 mls @ 100 mls/hr IVPB DAILY@ 2300 [facility] PRN Reason: Protocol Last Admin: 07/31/17 22:57 Dose: 100 mls/hr Levofloxacin/Dextrose (Levaquin 500mg) 500 mg in 100 mls @ 100 mls/hr IVPB DAILY@1100 [facility] PRN Reason: Protocol Last Admin: 08/01/17 11:00 Dose: 100 mls/hr Methylprednisolone (Solu-Medrol) 40 mg IVP DAILY [facility] Last Admin: 08/01/17 09:00 Dose: 40 mg Oxycodone/Acetaminophen (Percocet 5/325 Mg Tab) 1 tab PO Q4 PRN PRN Reason: Pain, moderate (4-7) Stop: 08/04/17 08:21 Last Admin: 08/01/17 08:48 Dose: 1 tab Physical Exam - Constitutional Appears: Non-toxic, No Acute Distress - Head Exam Head Exam: ATRAUMATIC, NORMAL INSPECTION, NORMOCEPHALIC - Eye Exam Eye Exam: PERRL. absent: Scleral icterus - ENT Exam ENT Exam: Mucous Membranes Dry, Normal External Ear Exam - Neck Exam Neck exam: Negative for: Lymphadenopathy - Respiratory Exam Respiratory Exam: Decreased Breath Sounds, Clear to Auscultation Bilateral - Cardiovascular Exam Cardiovascular Exam: REGULAR RHYTHM, +S1, +S2 - GI/Abdominal Exam GI & Abdominal Exam: Diminished Bowel Sounds, Soft. absent: Tenderness - Rectal Exam Rectal Exam: Deferred - Exam Exam: NORMAL INSPECTION - Extremities Exam Extremities exam: Positive for: pedal pulses present. Negative for: calf tenderness, pedal edema, tenderness - Back Exam Back exam: absent: CVA tenderness (L), CVA tenderness (R), paraspinal tenderness - Neurological Exam Neurological exam: Alert, CN II-XII Intact, Oriented x3, Reflexes Normal - Psychiatric Exam Psychiatric exam: Normal Mood - Skin Skin Exam: Dry, Intact Results - Vital Signs Recent Vital Signs: Last Vital Signs Temp 98.4 F 08/01/17 11:14 Pulse 88 08/01/17 11:14 Resp 16 08/01/17 11:14 BP 105/70 08/01/17 15:46 Pulse Ox 99 08/01/17 11:14 - Labs Result Diagrams: 08/01/17 06:50 08/01/17 06:50 Labs: Laboratory Results - last 24 hr 08/01/17 08/01/17 06:50 06:50 WBC 27.5 H RBC 4.65 Hgb 11.1 L Hct 34.7 MCV 74.5 L MCH 23.8 L MCHC 32.0 L RDW 17.9 H Plt Count 373 MPV 8.0 Neut % (Auto) 89.5 H Lymph % (Auto) 6.8 L [place] % (Auto) 1.8 Eos % (Auto) 1.7 Baso % (Auto) 0.2 Neut # (Auto) 24.6 H Lymph # (Auto) 1.9 [place] # (Auto) 0.5 Eos # (Auto) 0.5 Baso # (Auto) 0.1 Neutrophils % (Manual) 88 H Lymphocytes % (Manual) 9 L Monocytes % (Manual) 0 Eosinophils % (Manual) 3 Toxic Granulation Present Platelet Estimate Normal Hypochromasia (manual) Slight Anisocytosis (manual) Slight ESR 56 H Sodium 135 Potassium 4.1 Chloride 96 L Carbon Dioxide 28 Anion Gap 15 BUN 9 Creatinine 0.5 L Est GFR ( Amer) > 60 Est GFR (Non-Af Amer) > 60 Random Glucose 115 H Calcium 9.0 NT-Pro-B Natriuret Pep 105 Assessment & Plan (1) Leukocytosis Status: Acute (2) Anemia Status: Acute (3) Fatigue Status: Acute (4) H/O systemic lupus erythematosus (SLE) Status: Acute (5) Pericardial effusion Status: Acute - Assessment and Plan (Free Text) Assessment: leukocytosis is likely reactive no clear cut source of infection will send additional serologies and procalcitonin levels Plan: ok to d/c quinolone
[2017-08-02 06:47] LABS: BASO % 0.2 % (0.0-2.0); EOS # 0.2 K/uL (0.0-0.7); EOS % 0.7 % (0.0-4.0); HEMOGLOBIN 10.7 g/dL (12.0-16.0); LYMPH # 2.5 K/uL (1.0-4.3); LYMPH % 9.5 % (20.0-40.0); MEAN CELL VOLUME 75.8 fl (81.0-99.0); MEAN CORPUSCULAR HGB CONC 31.6 g/dL (33.0-37.0); MEAN PLATELET VOLUME 7.8 fl (7.2-11.7); MONO # 0.9 K/uL (0.0-0.8); MONO % 3.4 % (0.0-10.0); NEUT # 22.9 K/uL (1.8-7.0); NEUT % 86.2 % (50.0-75.0); RBC 4.46 Mil/uL (3.80-5.20); RED CELL DISTRIBUTION WIDTH 17.9 % (11.5-14.5); WHITE BLOOD COUNT 26.6 K/uL (4.8-10.8)
[2017-08-02] MEDS: cefTRIAXone 2 GM in Sodium Chloride 0.9% 100 ML IVPB SCH (09:13)
[2017-08-02] MEDS: MethylPREDNISolone 40 mg Vial IVP SCH (09:13)
--- NOTE | 2017-08-02 14:00 | CP.PCM.PN ---
Subjective - Date & Time of Evaluation Date of Evaluation: 08/02/17 Time of Evaluation: 14:00 - Subjective Subjective: CLINICALLY IMPROVING JOINT PAINS AND FEVER LESS Objective - Vital Signs/Intake and Output Vital Signs (last 24 hours): Temp Pulse Resp BP Pulse Ox 98.8 F 89 18 108/62 99 08/02/17 09:00 08/02/17 09:00 08/02/17 09:00 08/02/17 12:28 08/02/17 09:00 - Medications Medications: Current Medications Acetaminophen (Tylenol 325mg Tab) 650 mg PO Q4 PRN PRN Reason: Fever >100.4 F, pain Last Admin: 07/31/17 20:57 Dose: 650 mg Furosemide (Lasix) 40 mg PO DAILY@1100 [facility] Last Admin: 08/02/17 12:28 Dose: 40 mg Hydroxychloroquine Sulfate (Plaquenil) 200 mg PO Q12@1100,2200 [facility] PRN Reason: Protocol Last Admin: 08/02/17 12:28 Dose: 200 mg Ceftriaxone Sodium 2 gm/ (Sodium Chloride) 100 mls @ 100 mls/hr IVPB DAILY [facility] PRN Reason: Protocol Last Admin: 08/02/17 09:13 Dose: 100 mls/hr Methylprednisolone (Solu-Medrol) 40 mg IVP DAILY [facility] Last Admin: 08/02/17 09:13 Dose: 40 mg Oxycodone/Acetaminophen (Percocet 5/325 Mg Tab) 1 tab PO Q4 PRN PRN Reason: Pain, moderate (4-7) Stop: 08/04/17 08:21 Last Admin: 08/01/17 08:48 Dose: 1 tab - Labs Labs: 08/02/17 05:30 08/01/17 06:50 - Constitutional Appears: No Acute Distress - Head Exam Head Exam: ATRAUMATIC, NORMAL INSPECTION, NORMOCEPHALIC - Eye Exam Eye Exam: EOMI, Normal appearance, PERRL Pupil Exam: NORMAL ACCOMODATION, PERRL - ENT Exam ENT Exam: Mucous Membranes Moist, Normal Exam - Neck Exam Neck Exam: Full ROM, Normal Inspection. absent: Lymphadenopathy - Respiratory Exam Respiratory Exam: Clear to Ausculation Bilateral, NORMAL BREATHING PATTERN - Cardiovascular Exam Cardiovascular Exam: REGULAR RHYTHM, +S1, +S2. absent: Murmur - GI/Abdominal Exam GI & Abdominal Exam: Soft, Normal Bowel Sounds. absent: Tenderness - Rectal Exam Rectal Exam: NORMAL INSPECTION - Extremities Exam Extremities Exam: Full ROM, Normal Capillary Refill, Normal Inspection. absent : Joint Swelling, Pedal Edema - Back Exam Back Exam: NORMAL INSPECTION - Neurological Exam Neurological Exam: Alert, Awake, CN II-XII Intact, Normal Gait, Oriented x3 - Psychiatric Exam Psychiatric exam: Normal Affect, Normal Mood - Skin Skin Exam: Dry, Intact, Normal Color, Warm Assessment and Plan - Assessment and Plan (Free Text) Assessment: ACUTE EXAC OF SLE LEUKOCYTOSIS Plan: CONTINUE CURRENT RX
--- NOTE | 2017-08-02 20:39 | CP.PCM.PN ---
Subjective - Date & Time of Evaluation Date of Evaluation: 08/02/17 Time of Evaluation: 08:00 - Subjective Subjective: all cultures neg leukocytosis likely reactive improving on rx for SLE Objective - Vital Signs/Intake and Output Vital Signs (last 24 hours): Temp Pulse Resp BP Pulse Ox 98.4 F 86 20 106/49 L 100 08/02/17 15:53 08/02/17 15:53 08/02/17 15:53 08/02/17 15:53 08/02/17 15:53 Intake and Output: 08/02/17 08/03/17 18:59 06:59 Intake Total 1500 Balance 1500 - Medications Medications: Current Medications Acetaminophen (Tylenol 325mg Tab) 650 mg PO Q4 PRN PRN Reason: Fever >100.4 F, pain Last Admin: 07/31/17 20:57 Dose: 650 mg Diphenhydramine HCl (Benadryl) 25 mg PO Q6 [facility] Last Admin: 08/02/17 14:58 Dose: 25 mg Furosemide (Lasix) 40 mg PO DAILY@1100 [facility] Last Admin: 08/02/17 12:28 Dose: 40 mg Hydroxychloroquine Sulfate (Plaquenil) 200 mg PO Q12@1100,2200 [facility] PRN Reason: Protocol Last Admin: 08/02/17 12:28 Dose: 200 mg Ceftriaxone Sodium 2 gm/ (Sodium Chloride) 100 mls @ 100 mls/hr IVPB DAILY [facility] PRN Reason: Protocol Last Admin: 08/02/17 09:13 Dose: 100 mls/hr Methylprednisolone (Solu-Medrol) 40 mg IVP DAILY [facility] Last Admin: 08/02/17 09:13 Dose: 40 mg Oxycodone/Acetaminophen (Percocet 5/325 Mg Tab) 1 tab PO Q4 PRN PRN Reason: Pain, moderate (4-7) Stop: 08/04/17 08:21 Last Admin: 08/01/17 08:48 Dose: 1 tab - Labs Labs: 08/02/17 05:30 08/01/17 06:50 Assessment and Plan (1) Leukocytosis Status: Acute (2) Anemia Status: Acute (3) Fatigue Status: Acute (4) H/O systemic lupus erythematosus (SLE) Status: Acute (5) Pericardial effusion Status: Acute
[2017-08-03 08:03] LABS: BASO # 0.1 K/uL (0.0-0.2); BASO % 0.4 % (0.0-2.0); EOS # 0.2 K/uL (0.0-0.7); EOS % 0.7 % (0.0-4.0); HEMOGLOBIN 10.4 g/dL (12.0-16.0); LYMPH # 4.6 K/uL (1.0-4.3); LYMPH % 18.3 % (20.0-40.0); MEAN CELL VOLUME 75.5 fl (81.0-99.0); MEAN CORPUSCULAR HEMOGLOBIN 23.6 pg (27.0-31.0); MEAN CORPUSCULAR HGB CONC 31.2 g/dL (33.0-37.0); MEAN PLATELET VOLUME 7.9 fl (7.2-11.7); MONO # 1.5 K/uL (0.0-0.8); NEUT % 74.6 % (50.0-75.0); NRBC % 0.1 % (0.0-0.0); RBC 4.42 Mil/uL (3.80-5.20); RED CELL DISTRIBUTION WIDTH 18.4 % (11.5-14.5); WHITE BLOOD COUNT 25.4 K/uL (4.8-10.8)
[2017-08-03] MEDS: MethylPREDNISolone 40 mg Vial IVP SCH (09:00)
[2017-08-03] MEDS: cefTRIAXone 2 GM in Sodium Chloride 0.9% 100 ML IVPB SCH (09:01)
--- NOTE | 2017-08-03 10:03 | CP.PCM.PN ---
Subjective - Date & Time of Evaluation Date of Evaluation: 08/03/17 Time of Evaluation: 10:04 - Subjective Subjective: feels much better skin rash improved jt pains improved no fever Objective - Vital Signs/Intake and Output Vital Signs (last 24 hours): Temp Pulse Resp BP Pulse Ox 97.2 F L 90 20 118/66 99 08/03/17 08:30 08/03/17 08:30 08/03/17 08:30 08/03/17 08:30 08/03/17 08:30 - Medications Medications: Current Medications Acetaminophen (Tylenol 325mg Tab) 650 mg PO Q4 PRN PRN Reason: Fever >100.4 F, pain Last Admin: 07/31/17 20:57 Dose: 650 mg Diphenhydramine HCl (Benadryl) 25 mg PO Q6 [facility] Last Admin: 08/03/17 09:55 Dose: 25 mg Furosemide (Lasix) 40 mg PO DAILY@1100 [facility] Last Admin: 08/02/17 12:28 Dose: 40 mg Hydroxychloroquine Sulfate (Plaquenil) 200 mg PO Q12@1100,2200 [facility] PRN Reason: Protocol Last Admin: 08/02/17 23:01 Dose: 200 mg Ceftriaxone Sodium 2 gm/ (Sodium Chloride) 100 mls @ 100 mls/hr IVPB DAILY [facility] PRN Reason: Protocol Last Admin: 08/03/17 09:01 Dose: 100 mls/hr Methylprednisolone (Solu-Medrol) 40 mg IVP DAILY [facility] Last Admin: 08/03/17 09:00 Dose: 40 mg Oxycodone/Acetaminophen (Percocet 5/325 Mg Tab) 1 tab PO Q4 PRN PRN Reason: Pain, moderate (4-7) Stop: 08/04/17 08:21 Last Admin: 08/01/17 08:48 Dose: 1 tab - Labs Labs: 08/03/17 06:30 08/01/17 06:50 - Constitutional Appears: No Acute Distress - Head Exam Head Exam: ATRAUMATIC, NORMAL INSPECTION, NORMOCEPHALIC - Eye Exam Eye Exam: EOMI, Normal appearance, PERRL Pupil Exam: NORMAL ACCOMODATION, PERRL - ENT Exam ENT Exam: Mucous Membranes Moist, Normal Exam - Neck Exam Neck Exam: Full ROM, Normal Inspection. absent: Lymphadenopathy - Respiratory Exam Respiratory Exam: Clear to Ausculation Bilateral, NORMAL BREATHING PATTERN - Cardiovascular Exam Cardiovascular Exam: REGULAR RHYTHM, +S1, +S2. absent: Murmur - GI/Abdominal Exam GI & Abdominal Exam: Soft, Normal Bowel Sounds. absent: Tenderness - Rectal Exam Rectal Exam: NORMAL INSPECTION - Extremities Exam Extremities Exam: Full ROM, Normal Capillary Refill, Normal Inspection. absent : Joint Swelling, Pedal Edema - Back Exam Back Exam: NORMAL INSPECTION - Neurological Exam Neurological Exam: Alert, Awake, CN II-XII Intact, Normal Gait, Oriented x3 - Psychiatric Exam Psychiatric exam: Normal Affect, Normal Mood - Skin Skin Exam: Dry, Intact, Normal Color, Warm Assessment and Plan - Assessment and Plan (Free Text) Assessment: acute exac of lupus leukocytosis probably due to steroids and lupus pericardial effusion improved fever--resolved Plan: d/c iv steroids and begin po d/c lasix repeat cbc in am discharge home in am if stable
[2017-08-04 00:24] VITALS: O2SAT 100
[2017-08-04 07:39] LABS: BASO # 0.1 K/uL (0.0-0.2); BASO % 0.4 % (0.0-2.0); EOS # 0.1 K/uL (0.0-0.7); EOS % 0.4 % (0.0-4.0); HEMOGLOBIN 10.2 g/dL (12.0-16.0); LYMPH # 3.9 K/uL (1.0-4.3); LYMPH % 17.7 % (20.0-40.0); MEAN CELL VOLUME 75.9 fl (81.0-99.0); MEAN CORPUSCULAR HEMOGLOBIN 23.9 pg (27.0-31.0); MEAN CORPUSCULAR HGB CONC 31.5 g/dL (33.0-37.0); MEAN PLATELET VOLUME 8.2 fl (7.2-11.7); MONO # 1.5 K/uL (0.0-0.8); MONO % 6.7 % (0.0-10.0); NEUT # 16.4 K/uL (1.8-7.0); NEUT % 74.8 % (50.0-75.0); NRBC % 0.2 % (0.0-0.0); RBC 4.25 Mil/uL (3.80-5.20); RED CELL DISTRIBUTION WIDTH 18.6 % (11.5-14.5); WHITE BLOOD COUNT 21.9 K/uL (4.8-10.8)
[2017-08-04 09:42] VITALS: BP 123/65; PULSE 83; RESP 20; TEMP 97.7
--- NOTE | 2017-08-04 10:15 | CP.PCM.DIS ---
Provider - Provider Date of Admission: 07/30/17 16:53 Attending physician: Ihsan Lentz MD Time Spent in preparation of Discharge (in minutes): 30 Diagnosis - Discharge Diagnosis (1) Leukocytosis Status: Acute (2) Anemia Status: Acute (3) Fatigue Status: Acute (4) H/O systemic lupus erythematosus (SLE) Status: Acute (5) Pericardial effusion Status: Acute (6) SLE exacerbation Status: Acute Hospital Course - Lab Results Lab Results: Micro Results 07/30/17 19:30 Blood-Venous Blood Culture - Preliminary NO GROWTH AFTER 4 DAYS 07/30/17 Unknown Blood-Venous Blood Culture - Preliminary NO GROWTH AFTER 3 DAYS 07/30/17 17:37 Urine,Clean Catch Urine Culture - Final No Growth (<1,000 CFU/ML) Most Recent Lab Values WBC 21.9 K/uL (4.8-10.8) H 08/04/17 06:00 RBC 4.25 Mil/uL (3.80-5.20) 08/04/17 06:00 Hgb 10.2 g/dL (12.0-16.0) L 08/04/17 06:00 Hct 32.3 % (34.0-47.0) L 08/04/17 06:00 MCV 75.9 fl (81.0-99.0) L 08/04/17 06:00 MCH 23.9 pg (27.0-31.0) L 08/04/17 06:00 MCHC 31.5 g/dL (33.0-37.0) L 08/04/17 06:00 RDW 18.6 % (11.5-14.5) H 08/04/17 06:00 Plt Count 410 K/uL (130-400) H 08/04/17 06:00 MPV 8.2 fl (7.2-11.7) 08/04/17 06:00 Neut % (Auto) 74.8 % (50.0-75.0) 08/04/17 06:00 Lymph % (Auto) 17.7 % (20.0-40.0) L 08/04/17 06:00 [place] % (Auto) 6.7 % (0.0-10.0) 08/04/17 06:00 Eos % (Auto) 0.4 % (0.0-4.0) 08/04/17 06:00 Baso % (Auto) 0.4 % (0.0-2.0) 08/04/17 06:00 Neut # (Auto) 16.4 K/uL (1.8-7.0) H 08/04/17 06:00 Lymph # (Auto) 3.9 K/uL (1.0-4.3) 08/04/17 06:00 [place] # (Auto) 1.5 K/uL (0.0-0.8) H 08/04/17 06:00 Eos # (Auto) 0.1 K/uL (0.0-0.7) 08/04/17 06:00 Baso # (Auto) 0.1 K/uL (0.0-0.2) 08/04/17 06:00 Neutrophils % (Manual) 88 % (42-75) H 08/01/17 06:50 Lymphocytes % (Manual) 9 % (20-50) L 08/01/17 06:50 Monocytes % (Manual) 0 % (0-10) 08/01/17 06:50 Eosinophils % (Manual) 3 % (0-7) 08/01/17 06:50 Toxic Granulation Present 08/01/17 06:50 Platelet Estimate Normal (NORMAL) 08/01/17 06:50 Hypochromasia (manual) Slight 08/01/17 06:50 Anisocytosis (manual) Slight 08/01/17 06:50 ESR 56 mm/hr (0-20) H 08/01/17 06:50 Sodium 135 mmol/l (132-148) 08/01/17 06:50 Potassium 4.1 MMOL/L (3.6-5.0) 08/01/17 06:50 Chloride 96 mmol/L (98-107) L 08/01/17 06:50 Carbon Dioxide 28 mmol/L (22-30) 08/01/17 06:50 Anion Gap 15 (10-20) 08/01/17 06:50 BUN 9 mg/dl (7-17) 08/01/17 06:50 Creatinine 0.5 mg/dl (0.7-1.2) L 08/01/17 06:50 Est GFR ( Amer) > 60 08/01/17 06:50 Est GFR (Non-Af Amer) > 60 08/01/17 06:50 Random Glucose 115 mg/dL (65-105) H 08/01/17 06:50 Calcium 9.0 mg/dL (8.4-10.2) 08/01/17 06:50 Total Bilirubin 0.3 mg/dl (0.2-1.3) 07/31/17 08:12 AST 27 U/L (14-36) 07/31/17 08:12 ALT 44 U/L (9-52) 07/31/17 08:12 Alkaline Phosphatase 64 U/L (38-126) 07/31/17 08:12 NT-Pro-B Natriuret Pep 105 pg/ml (0-450) 08/01/17 06:50 Total Protein 6.9 G/DL (6.3-8.2) 07/31/17 08:12 Albumin 3.4 g/dL (3.5-5.0) L 07/31/17 08:12 Globulin 3.5 gm/dL (2.2-3.9) 07/31/17 08:12 Albumin/Globulin Ratio 1.0 (1.0-2.1) 07/31/17 08:12 Procalcitonin 0.06 NG/ML (0.19-0.49) L 08/01/17 17:42 Urine Color Yellow (YELLOW) 07/30/17 17:37 Urine Clarity Slighty-cloudy (Clear) 07/30/17 17:37 Urine pH 7.0 (5.0-8.0) 07/30/17 17:37 Ur Specific [place] 1.021 (1.003-1.030) 07/30/17 17:37 Urine Protein 30 mg/dL (NEGATIVE) 07/30/17 17:37 Urine Glucose (UA) Neg mg/dL (Normal) 07/30/17 17:37 Urine Ketones Negative mg/dL (NEGATIVE) 07/30/17 17:37 Urine Blood Negative (NEGATIVE) 07/30/17 17:37 Urine Nitrate Negative (NEGATIVE) 07/30/17 17:37 Urine Bilirubin Negative (NEGATIVE) 07/30/17 17:37 Urine Urobilinogen 2.0 mg/dL (0.2-1.0) H 07/30/17 17:37 Ur Leukocyte Esterase Neg [facility]/uL (Negative) 07/30/17 17:37 Urine RBC (Auto) 1 /hpf (0-3) 07/30/17 17:37 Urine Microscopic WBC 1 /hpf (0-5) 07/30/17 17:37 Ur Squamous Epith Cells 4 /hpf (0-5) 07/30/17 17:37 Urine Bacteria Rare (<OCC) 07/30/17 17:37 EBV Capsid Ag IgG Ab >750.00 U/mL H 08/01/17 17:42 EBV Capsid Ag IgM Ab <36.00 U/mL 08/01/17 17:42 EBV Nuclear Antigen Ab 577.00 U/mL H 08/01/17 17:42 EBV Interpretation See note 08/01/17 17:42 Infectious [place] Assay Negative (NEGATIVE) 08/01/17 17:42 Influenza Typ A,B (EIA) Negative for flu a/b (NEGATIVE) 08/01/17 17:30 Anti-Staphylolysin O Negative (NEGATIVE) 08/01/17 17:42 - Hospital Course Hospital Course: CLINICALLY IMPROVED FEVER RESOLVED LEUKOCYTOSIS IMPROVED ALL CULTURES NEGATIVE Discharge Exam - Head Exam Head Exam: ATRAUMATIC, NORMAL INSPECTION, NORMOCEPHALIC - Eye Exam Eye Exam: EOMI, Normal appearance, PERRL Pupil Exam: NORMAL ACCOMODATION, PERRL - GI/Abdominal Exam GI & Abdominal Exam: Normal Bowel Sounds - Rectal Exam Rectal Exam: NORMAL INSPECTION - Neurological Exam Neurological exam: Alert, CN II-XII Intact, Normal Gait, Oriented x3, Reflexes Normal - Psychiatric Exam Psychiatric exam: Normal Affect, Normal Mood - Skin Skin Exam: Dry, Intact, Normal Color, Warm Discharge Plan - Follow Up Plan Condition: STABLE Disposition: HOME/ ROUTINE Patient education suggested?: Yes Instructions: Lupus, How to Wash Your Hands Properly
--- NOTE | 2017-08-04 12:10 | CP.PCM.PN ---
Subjective - Date & Time of Evaluation Date of Evaluation: 08/04/17 Time of Evaluation: 07:00 - Subjective Subjective: improving afebrile no resp complaints joints much less painful Objective - Vital Signs/Intake and Output Vital Signs (last 24 hours): Temp Pulse Resp BP Pulse Ox 97.7 F 83 20 123/65 100 08/04/17 08:25 08/04/17 08:25 08/04/17 08:25 08/04/17 08:25 08/04/17 08:25 - Medications Medications: Current Medications Acetaminophen (Tylenol 325mg Tab) 650 mg PO Q4 PRN PRN Reason: Fever >100.4 F, pain Last Admin: 08/03/17 20:00 Dose: 650 mg Diphenhydramine HCl (Benadryl) 25 mg PO Q6 [facility] Last Admin: 08/04/17 09:54 Dose: 25 mg Hydroxychloroquine Sulfate (Plaquenil) 200 mg PO Q12@1100,2200 [facility] PRN Reason: Protocol Last Admin: 08/04/17 10:44 Dose: Not Given Prednisone (Prednisone Tab) 20 mg PO DAILY [facility] Last Admin: 08/04/17 09:54 Dose: 20 mg - Labs Labs: 08/04/17 06:00 08/01/17 06:50 - Constitutional Appears: Non-toxic, Chronically Ill - Head Exam Head Exam: NORMOCEPHALIC - Eye Exam Eye Exam: PERRL - ENT Exam ENT Exam: Mucous Membranes Dry - Neck Exam Neck Exam: absent: Lymphadenopathy - Respiratory Exam Respiratory Exam: Decreased Breath Sounds - Cardiovascular Exam Cardiovascular Exam: REGULAR RHYTHM - GI/Abdominal Exam GI & Abdominal Exam: Distended - Rectal Exam Rectal Exam: Deferred - Exam Exam: NORMAL INSPECTION - Extremities Exam Extremities Exam: absent: Pedal Edema - Back Exam Back Exam: absent: CVA tenderness (L), CVA tenderness (R) - Neurological Exam Neurological Exam: Alert, Awake, Oriented x3 - Psychiatric Exam Psychiatric exam: Normal Mood - Skin Skin Exam: Dry Assessment and Plan (1) Leukocytosis Status: Acute (2) Anemia Status: Acute (3) Fatigue Status: Acute (4) H/O systemic lupus erythematosus (SLE) Status: Acute (5) Pericardial effusion Status: Acute - Assessment and Plan (Free Text) Assessment: leukocytosis resolving septic work up neg cont rx for lupus out pt follow up
[2017-08-05 12:46] LABS: 23 KD (IGG) BAND Nonreactive
== END 2017-08-04 14:25 | disposition home or self-care (01) | DRG 546 ==
LOC: H.ER 10:46 → H.ERHOLD 16:53 → H.PEDS 21:00
PROVIDERS: ADMIT Internal Medicine Pulmonary Disease; ATTEND Internal Medicine Pulmonary Disease
DX: M32.9 Systemic lupus erythematosus, unspecified (principal); L03.113 Cellulitis of right upper limb; I31.3 Pericardial effusion (noninflammatory); T38.0X5A Adverse effect of glucocorticoids and synthetic analogues, initial encounter; D72.829 Elevated white blood cell count, unspecified; D64.9 Anemia, unspecified; R53.83 Other fatigue

== ENCOUNTER 2017-10-02 23:03 | Emergency (ER) | payer OTHER ==
[2017-10-02 23:03] VITALS: BMI 24.8
[2017-10-02 23:14] VITALS: O2SAT 100
[2017-10-02] MEDS ORDERED: Sodium Chloride 0.9% 1,000 ML IV STA (23:44)
--- NOTE | 2017-10-03 00:06 | ED PDOC ---
HPI: General Adult Time Seen by Provider: 10/02/17 23:34 Chief Complaint (Nursing): Abnormal Labs Chief Complaint (Provider): Abnormal Labs History Per: Patient History/Exam Limitations: no limitations Onset/Duration Of Symptoms: Days Current Symptoms Are (Timing): Still Present Additional Complaint(s): Rema Callaway is a 21 year old female with a past medical history of lupus who is presenting to the ED after referral by PMD for evaluation of leukocytosis. Patient states that she is presently taking Plaquenil, naproxen, and Prednisone. She also reports that she has been seeing a cashier manager. Patient states that over the past week she has been having intermittent fever associated with fatigue and nausea. Yesterday, she reports that she went in for routine blood work and was called by her doctor who advised she come to ED for evaluation of leukocytosis. Patient also adds that her prednisone dose was changed from 20 mg to 5 mg and that she feels her lupus may be more active. Patient denies any urinary symptoms or cough and offers no other medical complaints. PMD: [facility] Ferrera MD Past Medical History Reviewed: Historical Data, Nursing Documentation, Vital Signs Vital Signs: Last Vital Signs Temp 98.7 F 10/02/17 23:11 Pulse 91 H 10/02/17 23:11 Resp 16 10/02/17 23:11 BP 107/61 10/02/17 23:11 Pulse Ox 100 10/03/17 00:09 - Medical History PMH: Denies: HIV, Chronic Kidney Disease Other PMH: Lupus - Surgical History Surgical History: No Surg Hx - Family History Family History: States: Unknown Family Hx - Social History Current smoker - smoking cessation education provided: No Alcohol: None Drugs: Denies - Home Medications Home Medications: Ambulatory Orders Medication Instructions Recorded Hydroxychloroquine Sulfate 200 mg PO Q12 07/30/17 [Plaquenil] Naproxen [Naprosyn] 500 mg PO PRN PRN 10/02/17 Prednisone [Deltasone] 5 mg PO DAILY 10/03/17 - Allergies Allergies/Adverse Reactions: Allergies Allergy/AdvReac Type Severity Reaction Status Date / Time prednisone Allergy RASH Verified 10/02/17 23:11 Review of Systems ROS Statement: Except As Marked, All Systems Reviewed And Found Negative Constitutional: Positive for: Fever, Other (leukocytosis) Respiratory: Negative for: Cough Gastrointestinal: Positive for: Nausea Genitourinary Female: Negative for: Other (urinary symptoms) Physical Exam - Reviewed Nursing Documentation Reviewed: Yes Vital Signs Reviewed: Yes - Physical Exam Head Exam: Positive for: ATRAUMATIC, NORMAL INSPECTION, NORMOCEPHALIC Skin: Positive for: Warm, Dry, Rash (malar) Eye Exam: Positive for: EOMI, Normal appearance, PERRL ENT: Positive for: Normal ENT Inspection Neck: Positive for: Normal, Painless ROM Cardiovascular/Chest: Positive for: Regular Rate, Rhythm. Negative for: Murmur Respiratory: Positive for: Normal Breath Sounds. Negative for: Respiratory Distress Gastrointestinal/Abdominal: Positive for: Normal Exam, Soft Back: Positive for: Normal Inspection Extremity: Positive for: Normal ROM. Negative for: Deformity, Swelling Neurologic/Psych: Positive for: Alert, Oriented. Negative for: Motor/Sensory Deficits - Laboratory Results Result Diagrams: 10/03/17 00:20 10/03/17 00:20 - ECG O2 Sat by Pulse Oximetry: 100 (RA) Pulse Ox Interpretation: Normal Medical Decision Making Medical Decision Making: Time: 23:50 Impression: 21 year old female with leukocytosis in setting of steroid use due to Lupus Plan: --CBC --Lact Acid, Plasma --ED Urine Dipstick --Urine Prgnancy --CMP --Erythrocyte Sedimentation --Zofran 4 mg IV --Blood Culture --Urinalysis 2:45 --Labs reviewed which show mild leukocytosis at 20.8 which is likely secondary to steroid use. --Patient was previously admitted for leukocytosis and was discharged with a higher white blood cell count. --Lactic acid was normal and no fever persisted in the ED. --Upon Provider evaluation, patient is stable for discharge. --Patient advised to get a repeat CBC with her cashier manager and if she cannot get an appointment, she can follow up with the [facility]. Scribe Attestation: Documented by Valerie Martinez, acting as a scribe for Dimas Bedoya MD. Provider Scribe Attestation: All medical record entries made by the Scribe were at my direction and personally dictated by me. I have reviewed the chart and agree that the record accurately reflects my personal performance of the history, physical exam, medical decision making, and the department course for this patient. I have also personally directed, reviewed, and agree with the discharge instructions and disposition. Disposition - Clinical Impression Clinical Impression: SLE exacerbation, Leukocytosis - Patient ED Disposition Is Patient to be Admitted: No - Disposition Referrals: [facility] [Outside] Maisha CAMPA,MD [place] [Primary Care Provider] - Disposition: Routine/Home Disposition Time: 02:47 Condition: IMPROVED Instructions: Lupus Forms: [facility] (Chilean)
[2017-10-03 00:31] LABS: BASO # 0.1 K/uL (0.0-0.2); BASO % 0.3 % (0.0-2.0); EOS # 0.2 K/uL (0.0-0.7); EOS % 0.9 % (0.0-4.0); LYMPH # 1.4 K/uL (1.0-4.3); LYMPH % 6.7 % (20.0-40.0); MEAN CELL VOLUME 75.9 fl (81.0-99.0); MEAN CORPUSCULAR HEMOGLOBIN 24.1 pg (27.0-31.0); MEAN CORPUSCULAR HGB CONC 31.8 g/dL (33.0-37.0); MONO # 0.4 K/uL (0.0-0.8); MONO % 2.1 % (0.0-10.0); NEUT # 18.8 K/uL (1.8-7.0); PLATELET COUNT 331 K/uL (130-400); RBC 4.14 Mil/uL (3.80-5.20); RED CELL DISTRIBUTION WIDTH 17.4 % (11.5-14.5); WHITE BLOOD COUNT 20.8 K/uL (4.8-10.8)
[2017-10-03 00:42] LABS: ALB/GLOB RATIO 1.1 (1.0-2.1); ALBUMIN 3.5 g/dL (3.5-5.0); ALT/SGPT 25 U/L (9-52); AST/SGOT 20 U/L (14-36); BLOOD UREA NITROGEN 9 mg/dl (7-17); CALCIUM 8.8 mg/dL (8.4-10.2); GFR AFRICAN-AMERICAN > 60; GFR NON-AFRICAN AMERICAN > 60
[2017-10-03 01:34] LABS: EOSINOPHIL 1 % (0-7); LYMPHOCYTE 9 % (20-50); MONOCYTE 2 % (0-10); NEUTROPHIL 88 % (42-75); PLATELET ESTIMATE NORMAL (NORMAL); TOTAL CELLS COUNTED 100
[2017-10-03 01:36] LABS: ANISOCYTOSIS SLIGHT; MICROCYTOSIS SLIGHT; OVALOCYTES SLIGHT; POIKILOCYTOSIS SLIGHT; SPHEROCYTES SLIGHT
[2017-10-03 01:37] LABS: TEARDROP CELLS SLIGHT
[2017-10-03 02:05] LABS: SQUAMOUS EPITHIAL 7 /hpf (0-5); URINE BILIRUBIN NEGATIVE (NEGATIVE); URINE BLOOD NEGATIVE (NEGATIVE); URINE CLARITY SLIGHTY-CLOUDY (Clear); URINE COLOR YELLOW (YELLOW); URINE GLUCOSE (UA) NEG (Normal); URINE LEUKOCYTE ESTERASE NEG Leu/uL (Negative); URINE PROTEIN NEGATIVE (NEGATIVE)
[2017-10-03 02:55] VITALS: BP 111/68; PULSE 90; RESP 14; TEMP 98.5
== END 2017-10-03 02:50 | disposition home or self-care (01) ==
LOC: H.ER 23:03
DX: M32.9 Systemic lupus erythematosus, unspecified (principal)
CPT/HCPCS: 80053; 81003; 81025; 83605; 85025; 85651; 87040; 99282; J7030